=== PATIENT | female | born 1970 | race Caucasian/White ===

== ENCOUNTER 2020-10-24 12:19 | Outpatient (REF) | payer OTHER, SELFPAY ==
--- NOTE | ~2020-10-24 | XR_ITS ---
EXAMINATION: BILATERAL KNEE X-RAY CLINICAL INFORMATION: Pain COMPARISON: Previous chest x-ray May 2018 TECHNIQUE: 4 views of each knee FINDINGS: Right: Bone alignment is normal. No fracture or dislocation is seen. There are small osteophytes at the medial femoral tibial and patellofemoral joints. There is a small osteophyte at the quadriceps tendon insertion to the patella. There is a small joint effusion. Left: Bone alignment is normal. No fracture or dislocation is seen. There are osteophytes at the medial femoral tibial and patellofemoral joints. There is no joint effusion. XR/XR knee LT 4V IMPRESSION: Mild degenerative changes.
--- NOTE | ~2020-10-24 | XR_ITS ---
EXAMINATION: BILATERAL KNEE X-RAY CLINICAL INFORMATION: Pain COMPARISON: Previous chest x-ray May 2018 TECHNIQUE: 4 views of each knee FINDINGS: Right: Bone alignment is normal. No fracture or dislocation is seen. There are small osteophytes at the medial femoral tibial and patellofemoral joints. There is a small osteophyte at the quadriceps tendon insertion to the patella. There is a small joint effusion. Left: Bone alignment is normal. No fracture or dislocation is seen. There are osteophytes at the medial femoral tibial and patellofemoral joints. There is no joint effusion. XR/XR knee RT 3V IMPRESSION: Mild degenerative changes.
[2020-10-24 13:17] LABS: MANUAL DIFF FLAG NO
[2020-10-24 13:23] LABS: Basophils Percent Auto 0.4 % (0-2); Eosinophils Absolute Auto 0.2 X10*3/uL (0.0-0.4); Eosinophils Percent Auto 2.4 % (0-4); Hematocrit 34.5 % (37-47); Imm Gran Abs Auto 0.04 X10*3/uL (0.00-0.03); Imm Gran Pct Auto 0.5 % (0.0-0.4); Lymphocytes Absolute Auto 3.2 X10*3/uL (1.2-4.9); Lymphocytes Percent Auto 41.5 % (20-40); Mean Corpuscular HGB Conc 31.9 g/dl (31.0-35.0); Mean Corpuscular Hemoglobin 28.4 pg (27.0-33.0); Mean Corpuscular Volume 89.1 fL (80-98); Mean Platelet Volume 9.3 fL (9.4-12.3); Monocytes Absolute Auto 0.8 X10*3/uL (0.1-1.2); Monocytes Percent Auto 10.4 % (2-11); Neutrophils Absolute Auto 3.4 X10*3/uL (2.0-8.3); Neutrophils Percent Auto 44.8 % (45-73); Platelet Count 338 X10*3/uL (160-400); Red Blood Count 3.87 X10*6/uL (4.20-5.50); Red Cell Distribution Width 12.8 % (11.0-16.0); White Blood Count 7.6 X10*3/uL (4.8-10.8)
[2020-10-24 14:16] LABS: Alanine Aminotransferase 21 U/L (0-31); Alkaline Phosphatase 83 U/L (39-117); Anion Gap 11 (12-20); Aspartate Amino Transferase 20 U/L (5-31); Bilirubin Total 0.5 mg/dL (0.0-1.0); Blood Urea Nitrogen 10 mg/dL (9-16); Carbon Dioxide 30 mmol/L (22-29); Chloride 104 mmol/L (96-108); Estimated Glomerular Filt Rate > 60; Free T4 (Free Thyroxine) 0.91 ng/dL (0.71-1.85); Glucose Random 116 mg/dL (60-115); Iron 46 mcg/dL (30-160); Percent Iron Saturation 12 % (15-50); Potassium 4.6 mmol/L (3.3-5.1); Sodium 140 mmol/L (135-145); Thyroid Stimulating Hormone 2.24 uIU/mL (0.32-4.0); Total Iron Binding Capacity 379 mcg/dL (228-428); Total Protein 7.1 g/dL (6.5-8.0); Unsaturated Iron Binding 333 ug/dL
== END 2020-10-24 12:20 | disposition home or self-care (01) ==
LOC: HO.LAB 12:19
PROVIDERS: PCP Internal Medicine; Visit Provider Internal Medicine
DX: R63.5 Abnormal weight gain (principal); K21.9 Gastro-esophageal reflux disease without esophagitis; D64.9 Anemia, unspecified; M25.561 Pain in right knee
CPT/HCPCS: 36415; 73562; 73564; 80053; 83540; 84439; 84443; 85025; 86140

== ENCOUNTER → 2020-11-05 14:09 | Outpatient (BNVA) | payer OTHER, SELFPAY | PROVIDERS: PCP Internal Medicine; Visit Provider Orthopaedic Surgery | DX: M22.2X1 Patellofemoral disorders, right knee (principal); M22.2X2 Patellofemoral disorders, left knee | CPT/HCPCS: 20610; 99212; J1040 ==

== ENCOUNTER 2021-03-10 09:38 | Outpatient (REF) | payer OTHER, SELFPAY ==
--- NOTE | ~2021-03-10 | MM_ITS ---
EXAMINATION: MM SCREENING DIGITAL BREAST TOMOSYNTHESIS, BILATERAL CLINICAL INFORMATION: Screening. Asymptomatic. Benign breast biopsy 2007. No known family history breast cancer. The lifetime risk of breast cancer based on the Tyrer-Cuzick Model is 5%. COMPARISON: Mammography: 06/16/2019, 05/10/2018, 04/30/2017, 02/26/2016, 05/27/2015 TECHNIQUE: Digital breast tomosynthesis is performed in both the craniocaudal and mediolateral oblique views along with computer-aided detection (CAD). Synthesized 2D images are generated from the tomosynthesis. Additional right ML view is provided. FINDINGS: There are scattered areas of fibroglandular density (ACR BI-RADS breast composition Category b). The left breast is unremarkable. There is no developing density or interval mass or architectural abnormality. Neither breast shows abnormal calcifications. The bilateral axilla and skin contours are unremarkable. The right MLO view has asymmetric tissue anterior upper outer with increased parenchymal density which may related to variation in compression. Patient will be recalled for additional imaging. MM/MM tomosynthesis screening BI IMPRESSION: 1. Right: Parenchymal asymmetry upper right breast on MLO view is increased parenchymal attenuation, possibly related to variation in compression. 2. Left: No mammographic evidence of malignancy. ASSESSMENT: BI-RADS 0: Incomplete - Need Additional Imaging Evaluation RECOMMENDATION: 1. Additional views of the right breast (3D spot MLO; 3D spot ML). 2. Targeted ultrasound if warranted after review of the additional views. 3. Radiology department staff will contact the patient for additional imaging. This patient's information was entered into a reminder system with a target due date for their next mammogram.
== END 2021-03-10 09:39 | disposition home or self-care (01) ==
LOC: HO.MAMMO 09:38
PROVIDERS: Visit Provider Internal Medicine
DX: Z12.31 Encounter for screening mammogram for malignant neoplasm of breast (principal)
CPT/HCPCS: 77063; 77067

== ENCOUNTER 2021-06-04 15:09 | Outpatient (REF) | payer OTHER, SELFPAY ==
--- NOTE | ~2021-06-04 | MR_ITS ---
EXAMINATION: MR BRAIN WITHOUT CONTRAST CLINICAL INFORMATION: Vertigo. COMPARISON: MRI dated 02/27/2011. TECHNIQUE: Multiplanar, multisequence imaging of the brain was performed without contrast. FINDINGS: No diffusion abnormalities are identified to suggest an acute or subacute infarct. The ventricles are normal in size. No mass effect or midline shift is seen. No brain parenchymal signal abnormality is noted. No extra-axial fluid collections are seen. The brainstem and cerebellum are normal. The gradient refocused acquisition is normal. The craniovertebral junction, marrow signal, and midline structures are normal. The major intracranial flow voids at the level of the [place] are preserved. The dural venous sinus flow voids are maintained. The mastoid air cells are well aerated. Small proteinaceous retention cyst visible in the left sphenoid sinus. MR/MR head/brain wo con IMPRESSION: No acute process. Normal MRI of the brain.
== END 2021-06-04 15:10 | disposition home or self-care (01) ==
LOC: HO.MRI 15:09
PROVIDERS: PCP Internal Medicine; Visit Provider Psychiatry & Neurology Neurology
DX: R42 Dizziness and giddiness (principal)
CPT/HCPCS: 70551

== ENCOUNTER 2021-06-23 11:18 | Outpatient (REF) | payer OTHER, SELFPAY ==
--- NOTE | ~2021-06-23 | XR_ITS ---
EXAMINATION: XR SHOULDER, LEFT CLINICAL INFORMATION: Pain COMPARISON: None TECHNIQUE: AP external rotation, Grashey, scapular Y, and axillary views of the left shoulder. FINDINGS: Bone alignment is normal. No fracture or dislocation is seen. The glenohumeral joint is normal. There is mild arthritis at the acromioclavicular joint. There is a small soft tissue calcification adjacent to the acromion. XR/XR shoulder LT min 2V IMPRESSION: Mild arthritis at the acromioclavicular joint and small soft tissue calcification adjacent to the acromion.
== END 2021-06-23 11:19 | disposition home or self-care (01) ==
LOC: HO.XRAY 11:18
PROVIDERS: PCP Internal Medicine; Visit Provider Nurse Practitioner Family
DX: M79.7 Fibromyalgia (principal); M25.512 Pain in left shoulder; Z79.899 Other long term (current) drug therapy
CPT/HCPCS: 73030; 99212

== ENCOUNTER 2021-06-26 12:34 | Outpatient (REF) | payer OTHER, SELFPAY ==
--- NOTE | ~2021-06-26 | MM_ITS ---
EXAMINATION: MM DIAGNOSTIC DIGITAL BREAST TOMOSYNTHESIS, RIGHT US DIAGNOSTIC ULTRASOUND BREAST, RIGHT CLINICAL INFORMATION: Recall from screening for parenchymal asymmetry upper outer right breast with increased attenuation likely related to variation and compression. COMPARISON: Mammography: 03/10/2021, 06/16/2019, 05/10/2018, 04/30/2017, 02/26/2016, 01/25/2015 TECHNIQUE: Digital breast tomosynthesis is performed. 2D images are generated from the tomosynthesis. The following views are obtained: Spot MLO, spot ML Ultrasound right breast is targeted to the upper outer quadrant. Grayscale imaging and color Doppler are performed without and with harmonics. FINDINGS: There are scattered areas of fibroglandular density (ACR BI-RADS breast composition Category b). Parenchymal asymmetry upper outer right breast is similar to prior exams dating back to 2014. There is no developing density or architectural abnormality. Ultrasound right breast demonstrates normal-appearing fibroglandular tissue. There is an incidental 5 mm cyst in the upper outer quadrant. No solid mass or architectural abnormality or ductal ectasia. No skin thickening or edema tracking in soft tissue planes. Results are discussed with the patient at time of visit. MM/MM tomosynthesis added views R IMPRESSION: Parenchymal pattern similar to prior studies. Small cyst under 1 cm. ASSESSMENT: BI-RADS 2: Benign RECOMMENDATION: Routine annual mammography screening. This patient's information was entered into a reminder system with a target due date for their next mammogram.
== END 2021-06-26 12:35 | disposition home or self-care (01) ==
LOC: HO.MAMMO 12:34
PROVIDERS: PCP Internal Medicine; Visit Provider Internal Medicine
DX: N64.89 Other specified disorders of breast (principal)
CPT/HCPCS: 76642; 77061; 77065

== ENCOUNTER 2021-08-04 10:27 | Emergency (ER) | payer MEDICARE, MEDICAID, SELFPAY ==
--- NOTE | ~2021-08-04 | XR_ITS ---
EXAMINATION: XR CHEST CLINICAL INFORMATION: Cough COMPARISON: Chest radiograph from 10/31/2015 TECHNIQUE: Frontal view of the chest was obtained. FINDINGS: Bilateral low lung volumes. Slight accentuation the pulmonary vasculature. Mild bibasilar atelectasis. No pneumothorax. Cardiomediastinal silhouette is not enlarged. No large pleural effusion. Degenerative changes of the thoracolumbar spine. Soft tissues are unremarkable. XR/XR chest 1V IMPRESSION: 1. Bilateral low lung volumes. 2. Slight accentuation the pulmonary vasculature. 3. Mild bibasilar atelectasis.
[2021-08-04 10:29] VITALS: BP 125/70; PULSE 114; O2SAT 95
[2021-08-04 11:17] VITALS: BP 111/56; PULSE 114; RESP 19; TEMP 39.5; O2SAT 93; BMI 37.8
[2021-08-04] MEDS: Acetaminophen 325 MG TABLET 650 MG PO (11:34)
[2021-08-04 12:01] LABS: COVID-19 Test Positive (Negative); IDNOW Serial# 08D9AD1C
[2021-08-04 14:13] VITALS: TEMP 38.4
[2021-08-04] MEDS: Ibuprofen 600 MG TABLET PO (14:13)
[2021-08-04 14:19] VITALS: BP 124/58; PULSE 95; RESP 18; TEMP 38.4; O2SAT 97
--- NOTE | 2021-08-04 14:23 | ED.URI ---
HPI - URI/Sore Throat General Chief Complaint: Upper Respiratory Symptoms Stated Complaint: FEVER,BODYACHES,CANNON,? COVID, +VACC Time Seen by Provider: 08/04/21 12:13 Source: patient Mode of arrival: ambulatory Limitations: no limitations History of Present Illness HPI Narrative: 51-year-old female with a history of obesity, fibromyalgia here with reports of cough, fever, runny nose, headache, body aches since . No shortness of breath, chest pain, vomiting, diarrhea, abdominal pain, joint pain or rash. Patient received COVID vaccine x2 Related Data Home Medications Medication Instructions Recorded Confirmed amitriptyline 75 mg tablet 75 mg PO BEDTIME 11/05/20 06/23/21 clonazepam 1 mg tablet 1 mg PO BID 11/05/20 06/23/21 cyclobenzaprine 10 mg tablet 10 mg PO BEDTIME PRN 11/05/20 06/23/21 meclizine 25 mg tablet 25 mg PO TID 11/05/20 06/23/21 omeprazole 20 mg capsule,delayed 20 mg PO DAILY 11/05/20 06/23/21 release simvastatin 10 mg tablet 10 mg PO DAILY 11/05/20 06/23/21 Previous Rx's Medication Instructions Recorded cholecalciferol (vitamin D3) 25 25 mcg PO DAILY #30 cap 02/04/21 mcg (1,000 unit) capsule (Vitamin D3) gabapentin 400 mg capsule 400 mg PO TID #270 cap 07/17/21 Allergies Allergy/AdvReac Type Severity Reaction Status Date / Time No Known Allergies Allergy Mild NONE Verified 08/04/21 11:17 Review of Systems Review of Systems: Yes all other systems are reviewed and are negative Constitutional: Constitutional: Reports no additional constitutional complaints, Reports body ache(s), Reports chills, Reports fever(s), Reports headache(s) and Denies weakness Eyes: Eyes: Reports no additional eye complaints and Denies change in vision ENT: Reports system reviewed and no additional complaints, except as documented, Denies dizziness, Reports headache(s), Denies nasal congestion, Reports nasal discharge and Denies neck pain Cardiovascular: Cardiovascular: Reports no additional cardiovascular complaints, Denies chest pain, Denies leg edema and Denies dyspnea Respiratory: Respiratory: Reports no additional respiratory complaints, Reports cough and Denies dyspnea Gastrointestinal: Gastrointestinal: Reports no additional gastrointestinal complaints, Denies abdominal pain, Denies diarrhea, Denies nausea and Denies vomiting Genitourinary: Genitourinary: Reports no additional female genitourinary complaints and Denies urinary incontinence Musculoskeletal: Musculoskeletal: Reports no additional musculoskeletal complaints, Denies back pain, Denies arthralgias, Denies joint swelling, Denies neck pain, Denies numbness and Denies tingling Integumentary/Breasts: Skin/Breast: Reports system reviewed and no additional complaints, except as docu and Denies rash Neurologic: Reports system reviewed and no additional complaints, except as documented, Denies Abnormal speech present, Denies dizziness, Reports headache(s), Denies numbness, Denies tingling and Denies weakness PMF Past Medical History Attestation statement: The following information was validated with the patient. Source: old records reviewed and nursing notes reviewed Medical History Acid reflux Anxiety High cholesterol Vertigo Surgical History History of section History of tubal ligation Family History Family History Mother No problems noted. Father No problems noted. Social History Social History Alcohol intake: current Patient Tobacco Use Status: Never used Tobacco Advance Directives: No Advance Directives Information Provided: Yes Patient : No Current occupational status: unemployed Physical Exam Vital Signs: Vital Signs: Last Vital Signs Temp 101.2 F H 08/04/21 14:19 Pulse 95 08/04/21 14:19 Resp 18 08/04/21 14:19 BP 124/58 L 08/04/21 14:19 Pulse Ox 97 08/04/21 14:19 BMI result Body Mass Index 37.8 Const: General: cooperative, healthy appearing, comfortable and no acute distress Orientation/consciousness: patient oriented x3 Limitations: no limitations HENMT: Head: Yes normal to inspection Ears: hearing grossly normal bilaterally and TM's normal bilaterally General nose exam: Normal external nose present Face and sinus: Yes normal facial exam Mouth: Normal oral and palatal mucosa present Throat: Yes posterior oropharynx normal Eyes: General: appearance normal, both eyes and all related structures Pupils: Equal, round and reactive pupils present Neck: Neck: Yes normal visual inspection, Yes full ROM, Yes no lymphadenopathy and Yes no meningeal signs Chest: Chest palpation & inspection: normal inspection of the chest Resp: Effort & Inspection: normal respiratory effort Auscultation: clear to auscultation bilaterally Cardio: Rate: regular rate Rhythm: regular rhythm Peripheral pulses: Peripheral pulses 2+ throughout GI: Inspection: Yes normal to inspection Palpation (GI): Soft to palpation and nontender Auscultation: normal bowel sounds Back/Spine/Pelvis: Thoracic/Lumbar Spine: thoracic and lumbar spine normal to inspection Skin: General skin exam: no rashes or lesions noted Neuro: General: patient oriented x3, no meningeal signs, no focal motor deficits and normal sensation to monofilament Cranial nerves: Yes Equal, round and reactive pupils present Cognition (Neuro): normal cognition Speech: No Abnormal speech present Gait exam (Neuro): Normal gait present Motor exam (neuro): 5/5 motor strength present throughout Extrem: General: Yes normal to inspection, Yes no pedal edema and Yes no calf tenderness Course Course Course Narrative: 51-year-old female with a history of fibromyalgia and obesity here with reports of flu-like symptoms for several days. On arrival the patient is febrile with tachycardia which is from the fever. No hypoxia or tachypnea. After receiving Tylenol the patient's heart rate and temperature improved. Rapid COVID positive. Lungs are clear. Otherwise exam is benign.. We discussed monoclonal antibodies.. Referral was made the patient was given a copy of the referral. Reviewed worrisome signs and symptoms to return to the emergency department. Comfortable discharge home. MDM - URI/Sore Throat Medical Records Attestation: I reviewed the patient's medical records. Lab Data Attestation: I reviewed the patient's lab results. Labs: Lab Results 08/04/21 Range/Units 11:42 COVID-19 (EMILY) Positive A (Negative) COVID-19 Clin Com See Note Discharge Plan Discharge Clinical Impression: COVID-19 Patient Disposition: Home, Self-Care Instructions: COVID-19 (Coronavirus Disease 2019) (ED) Additional Instructions: Quarantine for 10 days from onset of symptoms Alternate Motrin or Tylenol for pain or fever Increase fluids, rest Notify any contacts that you had since having symptoms You were referred for monoclonal antibodies. You were given a copy of the referral Prescriptions: No Action cholecalciferol (vitamin D3) [Vitamin D3] 25 mcg (1,000 unit) capsule 25 mcg PO DAILY Qty: 30 RF: 5 gabapentin 400 mg capsule 400 mg PO TID Qty: 270 RF: 1 amitriptyline 75 mg tablet 75 mg PO BEDTIME RF: 0 omeprazole 20 mg capsule,delayed release(DR/EC) 20 mg PO DAILY RF: 0 meclizine 25 mg tablet 25 mg PO TID RF: 0 clonazepam 1 mg tablet 1 mg PO BID RF: 0 simvastatin 10 mg tablet 10 mg PO DAILY RF: 0 cyclobenzaprine 10 mg tablet 10 mg PO BEDTIME PRNRF: 0 Referrals: Physician,Unknown J [Primary Care Provider] - 2 days Interventions: ED Discharge Assessment Last Done: 08/04/21 14:30 Discharge Date/Time: 08/04/21 14:30
== END 2021-08-04 14:30 | disposition home or self-care (01) ==
PROVIDERS: Emergency Provider Emergency Medicine
DX: U07.1 COVID-19 (principal)
CPT/HCPCS: 36415; 71045; 87635; 99283

== ENCOUNTER 2021-08-19 10:30 | Outpatient (REF) | payer MEDICARE, MEDICAID, SELFPAY ==
[2021-08-19 11:02] LABS: COVID-19 Test Negative (Negative); IDNOW Serial# 55D5AD1C
== END 2021-08-19 10:31 | disposition home or self-care (01) ==
LOC: HO.LNP 10:30
PROVIDERS: Visit Provider Internal Medicine
DX: Z20.822 Contact with and (suspected) exposure to COVID-19 (principal); R51.9 Headache, unspecified; R05.9 Cough, unspecified
CPT/HCPCS: 87635

== ENCOUNTER 2022-02-05 10:21 | Outpatient (REF) | payer MEDICARE, MEDICAID, SELFPAY ==
[2022-02-05 11:38] LABS: Alanine Aminotransferase 20 U/L (0-31); Albumin Level 3.9 g/dL (3.5-5.0); Alkaline Phosphatase 82 U/L (39-117); Anion Gap 10 (12-20); Aspartate Amino Transferase 20 U/L (5-31); Bilirubin Total 0.2 mg/dL (0.0-1.0); Blood Urea Nitrogen 10 mg/dL (9-16); Calcium 9.2 mg/dL (8.4-10.2); Carbon Dioxide 27 mmol/L (22-29); Chloride 103 mmol/L (96-108); Estimated Glomerular Filt Rate > 60; Glucose Random 122 mg/dL (60-115); Potassium 4.2 mmol/L (3.3-5.1); Sodium 136 mmol/L (135-145); Total Protein 7.1 g/dL (6.5-8.0)
== END 2022-02-05 10:22 | disposition home or self-care (01) ==
LOC: HO.LAB 10:21
PROVIDERS: PCP Internal Medicine; Visit Provider Nurse Practitioner Family
DX: M79.7 Fibromyalgia (principal)
CPT/HCPCS: 36415; 80053

== ENCOUNTER 2022-03-26 10:36 | Outpatient (REF) | payer MEDICARE, MEDICAID, SELFPAY | END 2022-03-26 10:37 | disposition home or self-care (01) | LOC: HO.LAB 10:36 | PROVIDERS: PCP Internal Medicine; Visit Provider Nurse Practitioner Family | DX: E55.9 Vitamin D deficiency, unspecified (principal) | CPT/HCPCS: 36415; 82306 ==

== ENCOUNTER → 2022-06-23 11:24 | Outpatient (BNVA) | payer MEDICARE, MEDICAID, SELFPAY | PROVIDERS: PCP Internal Medicine; Referring Provider Internal Medicine; Visit Provider Nurse Practitioner Family | DX: M79.7 Fibromyalgia (principal) | CPT/HCPCS: 99212 ==

== ENCOUNTER 2022-07-20 12:09 | Outpatient (REF) | payer MEDICARE, MEDICAID, SELFPAY ==
--- NOTE | ~2022-07-20 | XR_ITS ---
EXAMINATION: XR ELBOW, RIGHT CLINICAL INFORMATION: Pain. COMPARISON: None TECHNIQUE: AP, lateral, and oblique views of the right elbow. FINDINGS: The tricompartment joint space is maintained normal. No visible fracture, loose bodies or bony erosive changes. There is a small enthesophyte along the superior olecranon process. XR/XR elbow RT 2V IMPRESSION: Mild degenerative spurring along the superior olecranon process. Otherwise unremarkable elbow exam.
== END 2022-07-20 12:10 | disposition home or self-care (01) ==
LOC: HO.XRAY 12:09
PROVIDERS: PCP Internal Medicine; Visit Provider Nurse Practitioner Family
DX: M25.521 Pain in right elbow (principal)
CPT/HCPCS: 73070

== ENCOUNTER 2022-07-28 12:10 | Outpatient (REF) | payer MEDICARE, MEDICAID, SELFPAY ==
--- NOTE | ~2022-07-28 | XR_ITS ---
EXAMINATION: XR FOOT, LEFT CLINICAL INFORMATION: Left foot pain COMPARISON: 03/16/2013 TECHNIQUE: AP, lateral, and oblique views of the left foot. FINDINGS: No acute fracture or malalignment. Moderate heel spur. Mild 1st MTP joint osteoarthritis. XR/XR foot LT min 3V IMPRESSION: Moderate heel spur. Mild 1st MTP joint osteoarthritis.
== END 2022-07-28 12:11 | disposition home or self-care (01) ==
LOC: HO.LAB 12:10
PROVIDERS: PCP Internal Medicine; Visit Provider Nurse Practitioner Family
DX: M79.7 Fibromyalgia (principal); M79.672 Pain in left foot
CPT/HCPCS: 36415; 73630; 82306

== ENCOUNTER 2022-08-13 14:15 | Outpatient (REF) | payer MEDICARE, MEDICAID, SELFPAY ==
[2022-08-13 14:29] LABS: MANUAL DIFF FLAG NO
[2022-08-13 14:40] LABS: Basophils Percent Auto 0.4 % (0-2); Eosinophils Absolute Auto 0.2 X10*3/uL (0.0-0.4); Eosinophils Percent Auto 2.6 % (0-4); Hematocrit 36.2 % (37.0-47.0); Hemoglobin 11.8 g/dl (12.0-16.0); Imm Gran Abs Auto 0.03 X10*3/uL (0.00-0.03); Imm Gran Pct Auto 0.4 % (0.0-0.4); Lymphocytes Absolute Auto 3.2 X10*3/uL (1.2-4.9); Mean Corpuscular HGB Conc 32.6 g/dl (31.0-35.0); Mean Corpuscular Hemoglobin 29.2 pg (27.0-33.0); Mean Corpuscular Volume 89.6 fL (80.0-98.0); Mean Platelet Volume 9.1 fL (9.4-12.3); Monocytes Absolute Auto 0.9 X10*3/uL (0.1-1.2); Neutrophils Absolute Auto 3.7 x10*3/uL (2.0-8.3); Neutrophils Percent Auto 45.6 % (45-73); Platelet Count 353 X10*3/uL (160-400); Red Blood Count 4.04 X10*6/uL (4.20-5.50); Red Cell Distribution Width 12.3 % (11.0-16.0); White Blood Count 8.1 X10*3/uL (4.8-10.8)
[2022-08-13 15:03] LABS: IDNOW Serial# 08D9AD1C; Strep A Nucleic Acid Invalid (Negative)
[2022-08-13 15:06] LABS: Alanine Aminotransferase 18 U/L (0-31); Alkaline Phosphatase 87 U/L (39-117); Anion Gap 12 (12-20); Aspartate Amino Transferase 21 U/L (5-31); Bilirubin Total 0.3 mg/dL (0.0-1.0); Blood Urea Nitrogen 11 mg/dL (9-16); Calcium 9.5 mg/dL (8.4-10.2); Carbon Dioxide 30 mmol/L (22-29); Chloride 104 mmol/L (96-108); Estimated Glomerular Filt Rate > 60; Glucose Random 106 mg/dL (60-115); Potassium 4.5 mmol/L (3.3-5.1); Sodium 141 mmol/L (135-145); Total Protein 7.4 g/dL (6.5-8.0)
== END 2022-08-13 14:16 | disposition home or self-care (01) ==
LOC: HO.LAB 14:15
PROVIDERS: PCP Internal Medicine; Visit Provider Internal Medicine
DX: J02.9 Acute pharyngitis, unspecified (principal); R53.83 Other fatigue
CPT/HCPCS: 36415; 80053; 85025; 87651

== ENCOUNTER 2023-03-23 09:38 | Outpatient (REF) | payer MEDICARE, MEDICAID, SELFPAY ==
--- NOTE | ~2023-03-23 | XR_ITS ---
EXAMINATION: XR HIP, RIGHT CLINICAL INFORMATION: Pain after remote fall COMPARISON: None available. TECHNIQUE: Two views of the right hip. FINDINGS: Visualized portion of the proximal right femur demonstrate no fracture. Right femoral head is well-seated within the acetabulum. There is mild narrowing of the femoral acetabular joint space. Small osteophyte along the superolateral acetabular margin. Small enthesophytes off the greater trochanter of the right hip. The pelvic ring is intact. The left hip is grossly unremarkable. XR/XR hip RT w [id number] IMPRESSION: Mild degenerative changes of the right hip without fracture or dislocation.
== END 2023-03-23 09:39 | disposition home or self-care (01) ==
LOC: HO.XRAY 09:38
PROVIDERS: PCP Internal Medicine; Visit Provider Internal Medicine Rheumatology
DX: M25.551 Pain in right hip (principal); M17.0 Bilateral primary osteoarthritis of knee; M79.7 Fibromyalgia
CPT/HCPCS: 73502; 99212

== ENCOUNTER 2023-03-23 09:38 | Outpatient (AMB) | payer MEDICARE, MEDICAID, SELFPAY ==
--- NOTE | 2023-03-23 10:11 | MHC.OFFVIS ---
Intake Vital Signs 03/23/23 10:12 Height 5 ft 1 in Weight 198 lb 3.129 oz BMI 37.4 BP 102/68 Blood Pressure Location Lt brachial Position Sitting Pulse 84 Pulse Source Pulse Oximeter Temp 97 F Temp Source Skin Pulse Oximetry (%) 96 Oxygen Delivery Method Room Air Intake Visit Reasons: FM Intake Note: Here for fibromyalgia follow up. 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 She has a low titer rheumatoid factor. She continues with widespread pain in spite of treatment with gabapentin 400 t.i.d., Flexeril 10 q.h.s. Elavil 75 q.h.s. and duloxetine. She complains of more hip pain recently in the right lateral hip. She had a fall on the hip about 6 weeks ago. There was no bruising or breaks in the skin. She is slightly better since then. [facility] Medical History Acid reflux Anxiety High cholesterol Vertigo Surgical History History of section History of tubal ligation Family History Mother No problems noted. Father No problems noted. Social History Alcohol intake: current Patient Tobacco Use Status: Never used Tobacco Current occupational status: unemployed Review of Systems Const Details: Negative for appetite change, weight change, fever, chills, malaise and fatigue Eyes Details: Negative for vision change, dry eyes,headaches and dizziness ENT Details: Negative for hearing change, tinnitus, oral ulcer, nose bleeds and oral dryness. Card Details: Negative chest pain, edema and syncope Resp Details: Negative for SOB, cough and wheezing GI Details: Negative indigestion/heartburn, nausea, abdominal pain, bowel changes, diarrhea, constipation and bloody stool. Psych Details: Negative for anxiety, depression and stress Mihir/Lymph Details: Negative for excessive bruising or bleeding. Physical Exam Vital Signs: Last Vital Signs Temp 97 F 03/23/23 10:12 Pulse 84 03/23/23 10:12 BP 102/68 03/23/23 10:12 Pulse Ox 96 03/23/23 10:12 Oxygen Delivery Method Room Air 03/23/23 10:12 BMI result Body Mass Index 37.4 APPEARANCE: Patient in no acute distress EYES no redness, pupils equal and reactive to light, eyelids normal EXTREMITIES: No edema, no calf tenderness, normal peripheral pulses. JOINT EXAM: Cervical Spine:? Full range of motion without pain; no tenderness. Thoracic Spine:? No scoliosis.? No tenderness on palpation. Lumbar Spine: Alignment normal.? Full range of motion without pain, no tenderness. Hands: Normal pain-free range of motion with slight tenderness across the MCPs but no swelling is appreciated. There is some mild bony enlargement at the 2nd through 5th PIP joints. No thenar atrophy, sensory loss or flexor tendon triggering. Wrists:? Normal pain-free range of motion with slight tenderness but no tenderness, swelling, increased warmth or erythema. Elbows: LEFT: Normal pain-free range of motion without tenderness, swelling, increased warmth or erythema. ? RIGHT:? Some pain with flexion.? No swelling increased warmth or erythema.? Point tenderness over lateral epicondyle.?? Shoulders:?? Full range of motion without pain. No tenderness, weakness, swelling, increased warmth or erythema. Hips: Right: mild lateral pain with the extremes of rotatin. Left: Full range of motion without pain. Hip bursa: mild right trochanteric tenderness. Knees: Normal pain-free range of motion with mild patellofemoral crepitus. There is some medial patellar tenderness without effusion, soft tissue swelling, increased warmth or erythema.? Ankles: Normal pain-free range of motion without tenderness, swelling, increased warmth or erythema. Feet:? LEFT: Normal pain-free range of motion. There is mild bony enlargement and tenderness at the 1st MTP. Other joints are not tender. Elsewhere there is no erythema, swelling, warmth noted and the remainder of the toes are pain-free. ? RIGHT:? Slight 1st MTP bony enlargement without tenderness. Otherwise there is normal pain-free range of motion without tenderness, swelling, increased warmth or erythema. Tender points:? Mild tenderness to digital palpation at the occiput, trapezius, second rib, lateral epicondyle, knees, greater trochanter and gluteal area bilaterally. ?? Results Reviewed Results Reviewed: [address] [address] XRay Report Signed Patient: Rosmery Bazan MR#: [id number] : 1970 Acct:[id number] Age/Sex: 50 / F ADM Date: 10/24/[address]: Ricardo Hernandez MD Ordering Physician: LUDMILA HERNANDEZ MD Date of Service: 10/24/20 Procedure(s): XR knee RT 3V Accession Number(s): [id number] cc: LUDMILA HERNANDEZ MD~ EXAMINATION: BILATERAL KNEE X-RAY CLINICAL INFORMATION: Pain? COMPARISON: Previous chest x-ray May 2018 TECHNIQUE: 4 views of each knee? ? FINDINGS: Right: Bone alignment is normal. No fracture or dislocation is seen. There are small osteophytes at the medial femoral tibial and patellofemoral joints. There is a small osteophyte at the quadriceps tendon insertion to the patella. There is a small joint effusion. Left: Bone alignment is normal. No fracture or dislocation is seen. There are osteophytes at the medial femoral tibial and patellofemoral joints. There is no joint effusion. XR/XR knee RT 3V IMPRESSION: Mild degenerative changes.? Dictated By: AKIN TERRY MD Assessment & Plan Assessment & Plan (1) Hip pain, right: Code(s): M25.551 - Pain in right hip (2) Osteoarthritis of knees, bilateral: Comment: Mostly patellofemoral Code(s): M17.0 - Bilateral primary osteoarthritis of knee (3) Fibromyalgia: Code(s): M79.7 - Fibromyalgia Plan The widespread pains of fibromyalgia continue. She has some patellofemoral OA that continues to bother her. Efforts at weight loss and quadriceps exercises are recommended. For now I think she could stay on her same medications as they do not seem to be sedating. The right hip pain is out of proportion to her usual pain so we will check an x-ray there. Most likely this is some traumatic bursitis in the hip. We could consider physical therapy or corticosteroid injection in the future. Otherwise a follow-up in 6 months would be reasonable. Coding Level of Care Code Est Pt Level 3 (07707) Diagnoses Hip pain, right M25.551 Osteoarthritis of knees, bilateral M17.0 Fibromyalgia M79.7
[2023-03-23 10:12] VITALS: BP 102/68; PULSE 84; TEMP 36.1; O2SAT 96; BMI 37.4
== END 2023-03-23 11:08 | disposition home or self-care (01) ==
PROVIDERS: PCP Internal Medicine; Visit Provider Internal Medicine Rheumatology
DX: M25.551 Pain in right hip (principal); M17.0 Bilateral primary osteoarthritis of knee; M79.7 Fibromyalgia
CPT/HCPCS: 99213

== ENCOUNTER 2023-04-20 11:08 | Outpatient (REF) | payer MEDICARE, MEDICAID, SELFPAY ==
[2023-04-20 11:28] LABS: MANUAL DIFF FLAG NO
[2023-04-20 11:58] LABS: Basophils Percent Auto 0.5 % (0-2); Eosinophils Absolute Auto 0.2 X10*3/uL (0.0-0.4); Eosinophils Percent Auto 2.4 % (0-4); Hematocrit 32.1 % (37.0-47.0); Hemoglobin 10.5 g/dl (12.0-16.0); Imm Gran Abs Auto 0.04 X10*3/uL (0.00-0.03); Imm Gran Pct Auto 0.5 % (0.0-0.4); Lymphocytes Absolute Auto 3.5 X10*3/uL (1.2-4.9); Lymphocytes Percent Auto 39.8 % (20-40); Mean Corpuscular HGB Conc 32.7 g/dl (31.0-35.0); Mean Corpuscular Hemoglobin 29.2 pg (27.0-33.0); Mean Corpuscular Volume 89.2 fL (80.0-98.0); Mean Platelet Volume 9.6 fL (9.4-12.3); Monocytes Absolute Auto 0.9 X10*3/uL (0.1-1.2); Monocytes Percent Auto 10.8 % (2-11); Platelet Count 338 X10*3/uL (160-400); Red Cell Distribution Width 12.4 % (11.0-16.0); White Blood Count 8.7 X10*3/uL (4.8-10.8)
[2023-04-20 12:53] LABS: Erythrocyte Sedimentation Rate 31 MM/HR (0-20)
[2023-04-20 12:57] LABS: Anion Gap 10 (12-20); Blood Urea Nitrogen 10 mg/dL (9-16); C Reactive Protein 1.44 mg/dL (< or = 0.50); Calcium 8.9 mg/dL (8.4-10.2); Carbon Dioxide 28 mmol/L (22-29); Chloride 104 mmol/L (96-108); Cholesterol 149 mg/dL (<200); Estimated Glomerular Filt Rate > 60; Glucose Random 108 mg/dL (60-115); Potassium 3.3 mmol/L (3.3-5.1); Sodium 139 mmol/L (135-145)
[2023-04-20 13:12] LABS: Free T4 (Free Thyroxine) 1.01 ng/dL (0.71-1.85); Thyroid Stimulating Hormone 3.55 uIU/mL (0.32-4.0)
[2023-04-20 13:19] LABS: Vitamin B12 420 pg/mL (200-900)
== END 2023-04-20 11:09 | disposition home or self-care (01) ==
LOC: HO.LAB 11:08
PROVIDERS: PCP Internal Medicine; Visit Provider Internal Medicine
DX: R53.83 Other fatigue (principal); M79.7 Fibromyalgia; E78.00 Pure hypercholesterolemia, unspecified; K21.9 Gastro-esophageal reflux disease without esophagitis
CPT/HCPCS: 36415; 80048; 82465; 82607; 84439; 84443; 85025; 85652; 86140

== ENCOUNTER 2023-04-24 19:30 | Emergency (ER) | payer MEDICARE, MEDICAID, SELFPAY ==
--- NOTE | ~2023-04-24 | XR_ITS ---
EXAMINATION: CHEST 2 VIEWS CLINICAL INFORMATION: chest pain. COMPARISON: 08/04/2021. TECHNIQUE: PA and lateral views of the chest obtained. FINDINGS: The lungs are mildly hypoexpanded but similar to the prior study. No focal infiltrate, effusion, edema, or pneumothorax. Cardiac and mediastinal silhouettes are within normal limits for technique. No acute bony abnormality seen XR/XR chest 2V IMPRESSION: Mildly hypoexpanded but otherwise no evidence of acute disease.
[2023-04-24 20:56] VITALS: BP 130/61; PULSE 72; RESP 18; TEMP 36.7; O2SAT 100; BMI 34.0
--- NOTE | 2023-04-24 20:56 | ED.GENADULT ---
HPI - General Adult General Chief complaint: General Medical Stated complaint: body aches ,fever,diarrhea x2 wks Time Seen by Provider: 04/24/23 23:40 Source: patient Mode of arrival: ambulatory Limitations: no limitations History of Present Illness HPI narrative: Patient is a 53-year-old female with history of fibromyalgia, osteoarthritis of knees presenting to the emergency department with complaint of intermittent subjective fevers which she describes as sweats/chills, generalized body aches, intermittent headaches, intermittent episodes of diarrhea and intermittent chest pain for the past 2 weeks. She denies cough. Denies abdominal pain. Denies nausea, vomiting, constipation. Denies any sick contacts. States that when she has diarrhea it is approximately 3 episodes per day. Denies recent antibiotics. Denies any rashes. MD complaint: Body aches, chest pain Onset (ago): week(s) Severity: moderate Quality: aching Pain Consistency: intermittent Relieving factors: none Exacerbating factors: none Associated symptoms: chest pain, fever/chills and headaches Treatments prior to arrival: none Related Data Home Medications Medication Instructions Recorded Confirmed amitriptyline 75 mg tablet 75 mg PO BEDTIME 11/05/20 03/23/23 clonazepam 1 mg tablet 1 mg PO BID 11/05/20 03/23/23 meclizine 25 mg tablet 25 mg PO TID 11/05/20 03/23/23 omeprazole 20 mg capsule,delayed 20 mg PO DAILY 11/05/20 03/23/23 release simvastatin 10 mg tablet 10 mg PO DAILY 11/05/20 03/23/23 duloxetine 60 mg capsule,delayed 60 mg PO DAILY 03/23/23 03/23/23 release Previous Rx's Medication Instructions Recorded naproxen 500 mg tablet 500 mg PO BID #28 tabs 06/23/22 cyclobenzaprine 10 mg tablet 10 mg PO BEDTIME PRN muscle spasm 09/24/22 #30 tabs gabapentin 400 mg capsule 400 mg PO TID #90 caps 04/13/23 cholecalciferol (vitamin D3) 50 50 mcg PO DAILY #30 caps 04/19/23 mcg (2,000 unit) capsule (Vitamin D3) Allergies Allergy/AdvReac Type Severity Reaction Status Date / Time No Known Allergies Allergy Mild NONE Verified 03/23/23 10:12 Review of Systems Review of Systems: As per HPI. Yes all other systems are reviewed and are negative Constitutional: Constitutional: Reports as per HPI [facility] Past Medical History Medical History Acid reflux Anxiety High cholesterol Vertigo Surgical History History of section History of tubal ligation Family History Family History Mother No problems noted. Father No problems noted. Social History Social History Alcohol intake: never Patient Tobacco Use Status: Never used Tobacco Smoked in Last 30 Days: No Use of substances other than those prescribed or required for medical reasons: No Advance Directives: No Advance Directives Information Provided: Yes Current occupational status: unemployed Physical Exam ED Vital Signs: Vital Signs - 24 hr 04/24/23 20:56 04/24/23 23:57 04/25/23 01:58 Temperature 98.1 F 98.2 F 98.2 F Pulse Rate 72 62 62 Respiratory Rate 18 16 16 Blood Pressure 130/61 127/79 131/84 Pulse Oximetry 100 98 98 Oxygen Delivery Method Room Air Room Air Room Air 04/25/23 03:08 Temperature Pulse Rate 70 Respiratory Rate 16 Blood Pressure 128/74 Pulse Oximetry 98 Oxygen Delivery Method Room Air BMI result Body Mass Index 34.0 Vital signs have been reviewed and appear to be correct. Blood pressure normal. Heart rate normal. Respiratory rate normal. Temperature normal. Oxygen saturation normal. Const General: cooperative, healthy appearing and no acute distress Orientation/consciousness: oriented to person, oriented to place, oriented to time and patient oriented x3 Limitations: no limitations [facility] Head: Yes normocephalic and Yes atraumatic Ears: external ears normal General nose exam: Normal external nose present Face and sinus: Yes face symmetric Mouth: oropharynx normal and moist mucous membranes Throat: Yes uvula midline Eyes Pupils: Equal, round and reactive pupils present Neck Neck: Yes normal visual inspection and Yes supple Resp Effort & Inspection: normal respiratory effort and able to speak in complete sentences Auscultation: clear to auscultation bilaterally Cardio Rate: regular rate Rhythm: regular rhythm Heart sounds: S1 normal heart sound present and S2 normal heart sound present GI Inspection: Yes normal to inspection Palpation (GI): Soft to palpation, nontender, no guarding and No Rebound tenderness present Auscultation: normoactive bowel sounds General: Yes no CVA tenderness Back/Spine/Pelvis Back: no CVA tenderness Skin General skin exam: elasticity normal and turgor normal Neuro General: oriented to person, oriented to place, oriented to time, patient oriented x3, moves all extremities, no focal motor deficits and CN's II-XI intact bilaterally Cranial nerves: Yes Equal, round and reactive pupils present Cognition (Neuro): normal cognition Extrem General: Yes full ROM, Yes no pedal edema and Yes no calf tenderness Psych Mental Status: mental status grossly normal Affect: normal affect Thought process: Normal thought process present Course Course Course Narrative: This is an RME: Additional HPI, ROS, PE not included below will be deferred to primary provider. This is a 75-ccpb-jna-female, with hx of fibromyalgia, HLD, vertigo, presenting to the emergency department with complaints of chest pain, subjective fevers, diarrhea, body aches x 2 weeks. No nausea or vomiting. No abdominal pain. Plan: Labs, viral swabs, UA ordered Medical Decision Making Medical Decision Making MDM Narrative: Patient is a 53-year-old female with history of fibromyalgia, osteoarthritis of knees presenting to the emergency department with complaint of intermittent subjective fevers which she describes as sweats/chills, generalized body aches, intermittent headaches, intermittent episodes of diarrhea and intermittent chest pain for the past 2 weeks. On exam patient is awake, A+Ox3, VS WNL, afebrile, normal neurological exam without focal deficits, TMs normal bilaterally, no erythema, edema, or exudate to posterior oropharynx, lung sounds clear throughout, abdomen soft and nontender, no CVA tenderness. Given reported symptoms and physical exam findings, initial differential includes viral illness, UTI, pneumonia, strep pharyngitis, electrolyte abnormality. Labs notable for no leukocytosis, mild anemia consistent with baseline, negative troponin, no electrolyte abnormalities. No evidence of acute disease on chest x-ray. Flu, RSV, and Covid negative. EKG normal sinus rhythm. Heart score 1. No evidence of infection on UA. Feel symptoms likely related to viral illness. All results discussed with patient and all questions answered. Instructed patient to utilize Tylenol and ibuprofen as needed for symptoms, ensure adequate rest an adequate fluid intake. Instructed patient to follow-up with primary care provider this week. Return precautions discussed at bedside. Patient verbalized understanding of and agreement with plan. Differential Diagnosis Differential Diagnoses: The differential diagnosis associated with the presentation includes As per MDM. Lab Data [facility] Lab Attestation statement: I reviewed the patient's lab results. As per MDM. 04/24/23 21:21 04/24/23 21:21 Labs: Lab Results 04/24/23 04/24/23 04/25/23 Range/Units 21:18 21:21 01:13 WBC 7.9 (4.8-10.8) X10*3/uL RBC 3.98 L (4.20-5.50) X10*6/uL Hgb 11.6 L (12.0-16.0) g/dl Hct 35.1 L (37.0-47.0) % MCV 88.2 (80.0-98.0) fL MCH 29.1 (27.0-33.0) pg MCHC 33.0 (31.0-35.0) g/dl RDW 12.4 (11.0-16.0) % Plt Count 334 (160-400) X10*3/uL MPV 8.9 L (9.4-12.3) fL Immature Gran % (Auto) 0.4 (0.0-0.4) % Neut % (Auto) 34.6 L (45-73) % Lymph % (Auto) 51.8 H (20-40) % [place] % (Auto) 10.5 (2-11) % Eos % (Auto) 2.2 (0-4) % Baso % (Auto) 0.5 (0-2) % Lymph # (Auto) 4.1 (1.2-4.9) X10*3/uL [place] # (Auto) 0.8 (0.1-1.2) X10*3/uL Eos # (Auto) 0.2 (0.0-0.4) X10*3/uL Baso # (Auto) 0.0 (0.0-0.2) X10*3/uL Abs Immat Gran (auto) 0.03 (0.00-0.03) X10*3/uL Absolute Neuts (auto) 2.7 (2.0-8.3) x10*3/uL Absolute Nucleated RBC 0.000 (0.0-0.012) X10*3/uL Nucleated RBC % (auto) 0.0 (0.0-0.2) /100WBC Sodium 142 (135-145) mmol/L Potassium 4.1 D (3.3-5.1) mmol/L Chloride 105 (96-108) mmol/L Carbon Dioxide 29 (22-29) mmol/L Anion Gap 12 (12-20) BUN 7 L (9-16) mg/dL Creatinine 0.72 (0.5-1.4) mg/dL Estim Creat Clear Calc 86.4 Estimated GFR > 60 Random Glucose 91 (60-115) mg/dL Calcium 9.5 D (8.4-10.2) mg/dL Magnesium 2.3 (1.6-2.6) mg/dL Total Bilirubin 0.2 (0.0-1.0) mg/dL Direct Bilirubin < 0.2 (0.0-0.5) mg/dL AST 24 (5-31) U/L ALT 20 (0-31) U/L Alkaline Phosphatase 77 (39-117) U/L Troponin I High Sens < 2.7 (<3.5-17.0) ng/L Total Protein 7.5 (6.5-8.0) g/dL Albumin 3.8 (3.5-5.0) g/dL Urine Color Yellow Urine Appearance Clear Urine pH 7.5 (5.0-9.0) Ur Specific [place] 1.010 (1.005-1.025) Urine Protein Negative (Neg-Trace) mg/dL Urine Glucose (UA) Negative (Negative) mg/dL Urine Ketones Negative (Negative) mg/dL Urine Blood Negative (Negative) Urine Nitrite Negative (Negative) Ur Leukocyte Esterase Negative (Negative) Influenza Type A (PCR) NEGATIVE (Negative) Influenza Type B (PCR) NEGATIVE (Negative) RSV RNA Qual (PCR) NEGATIVE (Negative) SARS-CoV-2 RNA (RT-PCR) NEGATIVE (Negative) Independent Interpretation I performed an independent interpretation of an: EKG and Plain X-Ray Interpretation: EKG: Normal sinus rhythm, rate 60 beats per minute, normal [place] interval, no evidence of STEMI No evidence of acute disease on CXR Radiology Impression Discussion of test interpretation with radiology: I have reviewed the radiologist's reading. Radiologist Impression: XR/XR chest 2V IMPRESSION: Mildly hypoexpanded but otherwise no evidence of acute disease. External Record Review External record reviewed: Inpatient record, Office record and Outpatient record Scores Heart Score History: -0- slightly suspicious ECG: -0- normal Age: -1- >45 - <65 Risk factory: -0- no risk factors known Troponin: -0- < or = normal limit Score: 1 Risk: 1.7% Discharge Plan Discharge Clinical Impression: Viral illness Patient Disposition: Home, Self-Care Instructions: Viral Syndrome (ED) Additional Instructions: You have been evaluated in the emergency department today for fever, body aches, chest pain, and diarrhea. Your evaluation, including labs, urinalysis, x-ray, and EKG, suggests that your symptoms are due to a viral illness. Please follow-up with your primary care physician within 2 days. Return to the emergency department if you experience worsening chest pain, shortness of breath, fever 100.4? F or greater, or any other concerning symptoms. Prescriptions: No Action cyclobenzaprine 10 mg tablet 10 mg PO BEDTIME PRN (Reason: muscle spasm) Qty: 30 1RF gabapentin 400 mg capsule 400 mg PO TID Qty: 90 4RF cholecalciferol (vitamin D3) [Vitamin D3] 50 mcg (2,000 unit) capsule 50 mcg PO DAILY Qty: 30 5RF amitriptyline 75 mg tablet 75 mg PO BEDTIME omeprazole 20 mg capsule,delayed release(DR/EC) 20 mg PO DAILY meclizine 25 mg tablet 25 mg PO TID clonazepam 1 mg tablet 1 mg PO BID simvastatin 10 mg tablet 10 mg PO DAILY naproxen 500 mg tablet 500 mg PO BID Qty: 28 0RF duloxetine 60 mg capsule,delayed release(DR/EC) 60 mg PO DAILY Interventions: ED Discharge Assessment Last Done: 04/25/23 03:09 Discharge Date/Time: 04/25/23 03:10
[2023-04-24 21:26] LABS: MANUAL DIFF FLAG NO
[2023-04-24 21:28] LABS: Basophils Percent Auto 0.5 % (0-2); Eosinophils Absolute Auto 0.2 X10*3/uL (0.0-0.4); Eosinophils Percent Auto 2.2 % (0-4); Hematocrit 35.1 % (37.0-47.0); Hemoglobin 11.6 g/dl (12.0-16.0); Imm Gran Abs Auto 0.03 X10*3/uL (0.00-0.03); Imm Gran Pct Auto 0.4 % (0.0-0.4); Lymphocytes Absolute Auto 4.1 X10*3/uL (1.2-4.9); Lymphocytes Percent Auto 51.8 % (20-40); Mean Corpuscular Hemoglobin 29.1 pg (27.0-33.0); Mean Corpuscular Volume 88.2 fL (80.0-98.0); Mean Platelet Volume 8.9 fL (9.4-12.3); Monocytes Absolute Auto 0.8 X10*3/uL (0.1-1.2); Monocytes Percent Auto 10.5 % (2-11); Neutrophils Absolute Auto 2.7 x10*3/uL (2.0-8.3); Neutrophils Percent Auto 34.6 % (45-73); Platelet Count 334 X10*3/uL (160-400); Red Blood Count 3.98 X10*6/uL (4.20-5.50); Red Cell Distribution Width 12.4 % (11.0-16.0); White Blood Count 7.9 X10*3/uL (4.8-10.8)
[2023-04-24 21:53] LABS: Alanine Aminotransferase 20 U/L (0-31); Albumin Level 3.8 g/dL (3.5-5.0); Alkaline Phosphatase 77 U/L (39-117); Anion Gap 12 (12-20); Aspartate Amino Transferase 24 U/L (5-31); Bilirubin Direct < 0.2 mg/dL (0.0-0.5); Bilirubin Total 0.2 mg/dL (0.0-1.0); Blood Urea Nitrogen 7 mg/dL (9-16); Calcium 9.5 mg/dL (8.4-10.2); Carbon Dioxide 29 mmol/L (22-29); Chloride 105 mmol/L (96-108); Creatinine Clr Calc Pharmacy 86.4; Estimated Glomerular Filt Rate > 60; Glucose Random 91 mg/dL (60-115); Magnesium 2.3 mg/dL (1.6-2.6); Potassium 4.1 mmol/L (3.3-5.1); Sodium 142 mmol/L (135-145); Total Protein 7.5 g/dL (6.5-8.0)
[2023-04-24 22:10] LABS: Troponin-I High Sensitivity < 2.7 ng/L (<3.5-17.0)
[2023-04-24 22:37] LABS: Influenza A PCR NEGATIVE (Negative); Influenza B PCR NEGATIVE (Negative); Resp Syncy Virus RNA Qual PCR NEGATIVE (Negative); SARS COV2 PCR INHOUSE NEGATIVE (Negative)
[2023-04-24 23:57] VITALS: BP 127/79; PULSE 62; RESP 16; TEMP 36.8; O2SAT 98
--- NOTE | 2023-04-25 00:52 | ECG_ITS ---
Test Reason : CHEST PAIN Blood Pressure : / mmHG Vent. Rate : 060 BPM Atrial Rate : 060 BPM P-R Int : 134 ms QRS Dur : 080 ms QT Int : 438 ms P-R-T Axes : 053 024 039 degrees QTc Int : 438 ms Normal sinus rhythm Normal ECG When compared with ECG of 03-MAR-2020 02:37, No significant change was found Referred By: Bebe Wall Electronically Signed By:HUGO MAO
--- NOTE | 2023-04-25 01:22 | MHC.EDTECH ---
patient urine sample collected and sent to lab ,ekg taken and was read by provider .
[2023-04-25 01:29] LABS: Appearance Urine Clear; Color Urine Yellow; Glucose Urine UA Negative (Negative); Leukocyte Esterase Urine Negative (Negative); Nitrite Urine Negative (Negative); PH 7.5 (5.0-9.0); Urine Blood Negative (Negative); Urine Ketones Negative (Negative); Urine Protein Negative (Neg-Trace)
[2023-04-25 01:58] VITALS: BP 131/84; PULSE 62; RESP 16; TEMP 36.8; O2SAT 98
[2023-04-25 03:08] VITALS: BP 128/74; PULSE 70; RESP 16; O2SAT 98
== END 2023-04-25 03:10 | disposition home or self-care (01) ==
PROVIDERS: Physician Assistant Medical; Emergency Provider Emergency Medicine Emergency Medical Services; PCP Internal Medicine
DX: B34.9 Viral infection, unspecified (principal); R50.9 Fever, unspecified; E78.5 Hyperlipidemia, unspecified; R42 Dizziness and giddiness; R07.9 Chest pain, unspecified; R19.7 Diarrhea, unspecified; Z20.828 Contact with and (suspected) exposure to other viral communicable diseases
CPT/HCPCS: 0241U; 36415; 71046; 80048; 80076; 81003; 83735; 84484; 85025; 93005; 99284

== ENCOUNTER 2023-11-02 13:41 | Outpatient (REF) | payer MEDICARE, MEDICAID, SELFPAY ==
[2023-11-02 14:37] LABS: Basophils Percent Auto 0.3 % (0-2); Eosinophils Absolute Auto 0.2 X10*3/uL (0.0-0.4); Eosinophils Percent Auto 1.6 % (0-4); Hematocrit 38.2 % (37.0-47.0); Hemoglobin 12.5 g/dl (12.0-16.0); Imm Gran Abs Auto 0.06 X10*3/uL (0.00-0.03); Imm Gran Pct Auto 0.5 % (0.0-0.4); MANUAL DIFF FLAG SCAN; Mean Corpuscular HGB Conc 32.7 g/dl (31.0-35.0); Mean Corpuscular Hemoglobin 29.3 pg (27.0-33.0); Mean Corpuscular Volume 89.5 fL (80.0-98.0); Mean Platelet Volume 9.7 fL (9.4-12.3); Monocytes Absolute Auto 1.3 X10*3/uL (0.1-1.2); Monocytes Percent Auto 10.7 % (2-11); Neutrophils Absolute Auto 4.7 x10*3/uL (2.0-8.3); Neutrophils Percent Auto 37.9 % (45-73); Platelet Count 417 X10*3/uL (160-400); Red Blood Count 4.27 X10*6/uL (4.20-5.50); Red Cell Distribution Width 11.7 % (11.0-16.0); SCAN SMEAR FLAG 1; White Blood Count 12.5 X10*3/uL (4.8-10.8)
[2023-11-02 14:39] LABS: Lymphocytes Absolute Auto 6.1 X10*3/uL (1.2-4.9)
[2023-11-02 15:11] LABS: Alanine Aminotransferase 20 U/L (0-31); Alkaline Phosphatase 86 U/L (39-117); Anion Gap 12 (12-20); Aspartate Amino Transferase 23 U/L (5-31); Bilirubin Total 0.2 mg/dL (0.0-1.0); Blood Urea Nitrogen 12 mg/dL (9-16); Calcium 9.9 mg/dL (8.4-10.2); Carbon Dioxide 27 mmol/L (22-29); Chloride 104 mmol/L (96-108); Cholesterol 197 mg/dL (<200); Estimated Glomerular Filt Rate > 60; Glucose Fasting 117 mg/dL (60-99); HDL Cholesterol 48 mg/dL (>40); LDL Cholesterol Calculated 118 mg/dL (<100); Potassium 3.9 mmol/L (3.3-5.1); Sodium 139 mmol/L (135-145); Triglycerides 159 mg/dL (<150)
[2023-11-02 15:27] LABS: Thyroid Stimulating Hormone 6.62 uIU/mL (0.32-4.0)
[2023-11-02 15:42] LABS: SLIDE REVIEW VERIFIED
[2023-11-05 07:28] LABS: TS Negative Control Passed; TS Panel A 0; TS Panel B 0; TS Positive Control Passed; TSpotTB Negative (Negative)
== END 2023-11-02 13:42 | disposition home or self-care (01) ==
LOC: HO.LAB 13:41
PROVIDERS: PCP Internal Medicine; Visit Provider Internal Medicine
DX: Z11.1 Encounter for screening for respiratory tuberculosis (principal); E78.00 Pure hypercholesterolemia, unspecified; K58.1 Irritable bowel syndrome with constipation; M79.7 Fibromyalgia
CPT/HCPCS: 36415; 80053; 80061; 84443; 85025; 86481

== ENCOUNTER 2024-06-22 13:26 | Outpatient (AMB) | payer MEDICARE, MEDICAID, SELFPAY ==
[2024-06-22 13:28] VITALS: BP 130/66; PULSE 81; O2SAT 97; BMI 39.1
--- NOTE | 2024-06-22 13:28 | A.OFFVIS_ITS ---
Vital Signs 06/22/24 13:28 Height 5 ft 1 in Weight 207 lb BMI 39.1 BP 130/66 Blood Pressure Location Lt brachial Position Sitting Pulse 81 Pulse Source Pulse Oximeter Pulse Oximetry (%) 97 Oxygen Delivery Method Room Air Intake Visit Reasons: FM Intake Note: Patient presents for follow up on fibromyalgia, she was last seen in the office by Dr. Sosa on 03/23/23. Patient is complaining of right shoulder pain that travels down her arm, with limited movement, can hardly lift her arm at times. Allergies No Known Allergies Allergy (Mild, Verified 06/22/24 13:31) NONE Medication List - Last Reconciled 06/22/24 by Yuliana Gonzalez MD amitriptyline 75 mg PO BEDTIME [id number] 250-250-65 mg (Excedrin Migraine) 1 tab PO Q4-6H PRN cholecalciferol (vitamin D3) (Vitamin D3) 50 mcg PO DAILY clonazepam 1 mg PO BID cyclobenzaprine 10 mg PO BEDTIME PRN duloxetine 60 mg PO DAILY gabapentin 400 mg PO TID hydroxyzine HCl 25 mg PO TID meclizine 25 mg PO TID naproxen 500 mg PO BID omeprazole 20 mg PO DAILY simvastatin 10 mg PO DAILY HPI Comments Details: Patient is a 54-year-old female with hyperlipidemia, osteoarthritis of bilateral knees, depression and fibromyalgia who is here today for follow-up Interval History: Patient last seen 03/23/[address] Deion Sosa. At that time she continued with widespread pain in spite of 400 mg gabapentin 3 times a day, Flexeril 10 mg every night, Elavil 75 mg every night and duloxetine. Specifically she was complaining of hip pain as she was status post fall. Today patient complain of severe left knee pain. Unable to walk up stairs to get to her proximal end. Also complaining of whole-body pain that is persistent. She states that the medication helps a little bit but does not take away her pain completely. Rheumatologic History: Fibromyalgia Osteoarthritis bilateral knees Current Rheumatology Medication(s): Duloxetine 60 mg daily Gabapentin 400 mg 3 times a day Amitriptyline 75 mg at night Cyclobenzaprine 10 mg at night [facility] Medical History Acid reflux Anxiety High cholesterol Vertigo Surgical History History of section History of tubal ligation Family History Mother No problems noted. Father No problems noted. Social History Alcohol intake: never Patient Tobacco Use Status: Never used Tobacco Current occupational status: unemployed Review of Systems Const Details: Review of Systems Constitutional: Denies fever, chills, weight loss ENT: Denies vision changes, eye pain or eye redness, dental caries, dry mouth GI: Denies nausea, vomiting, diarrhea, abdominal pain, change in BM Pulm: Denies SOB, MENDEZ, hemoptysis, wheezing Cards: Denies chest pain, palpitations Skin: Denies Raynaud's, rash, nail changes, photosensitivity, [place]UNTER: Denies headaches, weakness, paresthesias, recurrent falls MSK: as per HPI All other systems reviewed and are unremarkable except noted above Physical Exam Vital Signs: BMI result Body Mass Index 39.1 Physical Examination CONSTITUITIONAL Patient alert and cooperative. Well appearing and in no apparent painful distress HEENT Conjunctiva and sclera clear. ?Pupils equal round and reactive to light. ?No lymphadenopathy. ?Normal dentition. No oral or nasal ulcers noted. No evidence of discoid rash to the aubrey of ears CHEST/RESPIRATORY SYSTEM Normal respiratory effort and able to speak in complete sentences. ?Clear to auscultation bilaterally. ?No crackles, rales, rhonchi, wheezes heard. CARDIAC SYSTEM Regular rate and rhythm. ?S1 and S2 heard no murmurs. ?Radial pulses intact bilaterally MSK Hands: ?Good mother superior strength bilaterally - 5/5. ?No deformities noted. ?No synovitis noted to the MCPs, PIPs or DIPs. ?No tenderness to palpation of these joints. Wrists: ?Full range of motion at the wrists without pain. ?No tenderness to palpation or synovitis noted to the wrists. Elbows: Full range of motion without pain. No tenderness, weakness, swelling, increased warmth or erythema. Shoulders: Full range of motion without pain. No tenderness, weakness, swelling, increased warmth or erythema. Hips: Full range of motion without pain. Hip bursa: No tenderness to palpation Knees: ?Full range of motion. ?No tenderness, swelling, increased warmth or erythema.? Bilateral crepitations noted Ankles: Full range of motion. ?No tenderness, swelling, increased warmth or erythema.? Feet: ?Negative squeeze test. ?No tenderness to palpation or swelling of the MTPs. Tender points:? Tenderness to palpation of the neck, shoulders, chest, elbows, hips, buttocks or knees. SKIN Skin intact without rashes. Office Procedures AMB Joint Injection/Aspiration Joint Injection/Aspiration Details: Procedure was explained to the patient and consent was obtained. ? The area of interest was identified and confirmed with patient. ?This was subsequently cleaned with chlorhexidine x3. ? The area was then anesthetized using ethyl chloride spray. 80 mg Kenalog with 1 cc 1% lidocaine was injected without issue. ?Minimal to no bleeding. ?Patient tolerated procedure. Primary Site: left knee Prep: site was prepped using aseptic technique, ethochloride spray was applied and injection warnings given Injected: 80 mg of, Kenalog, with 1 mL of and 1% plain lidocaine Approach Used: medial parapatellar Procedure: The patient tolerated the procedure well Coding 84644 - Large joint Procedure code (CPT) selection complete Office Meds Kenalog 40 mg/mL suspension for injection Performing Provider: Yuliana Gonzalez MD Performing Location: [facility] [place] Rheumatology Administered by: Yuliana Gonzalez MD on 06/22/24 14:14 Dose Route Admin Location Dispensed Lot Number Expiration Date [facility] [employer] 80 mg intra-articular Left knee 2 mL [id number] 02/06/26 [address]-4 [employer] lidocaine (PF) 10 mg/mL (1 %) injection solution Performing Provider: Yuliana Gonzalez MD Performing Location: [facility] [place] Rheumatology Administered by: Yuliana Gonzalez MD on 06/22/24 14:14 Dose Route Admin Location Dispensed Lot Number Expiration Date [facility] [employer] 10 mg intra-articular Left knee 2 mL [id number] 11/07/26 24809-965-08 [facility] [employer] Results Reviewed Results Reviewed: Laboratory Tests 05/12/18 04/20/23 14:45 11:28 ESR 31 H Rheumatoid Factor < 15.0 Hip XR 03/2023 FINDINGS: Visualized portion of the proximal right femur demonstrate no fracture. Right femoral head is well-seated within the acetabulum. There is mild narrowing of the femoral acetabular joint space. Small osteophyte along the superolateral acetabular margin. Small enthesophytes off the greater trochanter of the right hip. The pelvic ring is intact. The left hip is grossly unremarkable. Assessment & Plan Assessment & Plan (1) Fibromyalgia: Code(s): M79.7 - Fibromyalgia Category: Medical Plan: #Fibromyalgia Patient will continue pains due to fibromyalgia. We will trial increasing gabapentin to 800 mg at night and continuing 400 mg in the morning and afternoon. She is to continue all the other medications including amitriptyline, cyclobenzaprine, duloxetine. (2) Osteoarthritis of knees, bilateral: Comment: Mostly patellofemoral Code(s): M17.0 - Bilateral primary osteoarthritis of knee Category: Medical Qualifiers: Osteoarthritis type: primary Qualified Code(s): M17.0 - Bilateral primary osteoarthritis of knee Plan: #Bilateral primary knee osteoarthritis Status post steroid injections of the left knee today. Letter written to help get patient an apartment on the 1st floor or inability with an elevator Plan I spent 20 minutes reviewing the record and labs, seeing the patient, discussing the treatment plan and documenting in the medical record ? Orders: Orders AMB Joint Injection/Aspiration Today M17.0 - Bilateral primary osteoarthritis of knee Medications: New lidocaine (PF) 10 mg intra-articular ONCE 2 mL 0RF M17.0 - Bilateral primary osteoarthritis of knee duloxetine 60 mg PO DAILY 90 caps 2RF M79.7 - Fibromyalgia Kenalog (triamcinolone acetonide) 80 mg (2 mL) intra-articular ONCE 2 mL 0RF NS M17.0 - Bilateral primary osteoarthritis of knee amitriptyline 75 mg PO BEDTIME 90 tabs 2RF M79.7 - Fibromyalgia Changed From gabapentin 400 mg PO TID 90 caps 4RF M79.7 - Fibromyalgia To gabapentin Take one pill in the morning, one pill in the afternoon and two pills at night 400 mg PO TID 120 caps 4RF M79.7 - Fibromyalgia Refilled cyclobenzaprine 10 mg PO BEDTIME PRN 30 tabs 1RF muscle spasm Coding Level of Care Code Est Pt Level 3 (48706) Diagnoses Fibromyalgia M79.7 Primary osteoarthritis of both knees M17.0 Osteoarthritis type: primary CPT Codes Coding - 81419 Large joint: 32554 - Large joint ([id number])
== END 2024-06-22 14:13 | disposition home or self-care (01) ==
PROVIDERS: PCP Internal Medicine; Visit Provider Student in an Organized Health Care Education/Training Program
DX: M79.7 Fibromyalgia (principal); M17.0 Bilateral primary osteoarthritis of knee
CPT/HCPCS: 20610; 99213

== ENCOUNTER → 2024-06-22 13:26 | Outpatient (BNVA) | payer MEDICARE, MEDICAID, SELFPAY | PROVIDERS: PCP Internal Medicine; Visit Provider Student in an Organized Health Care Education/Training Program | DX: M79.7 Fibromyalgia (principal); M17.0 Bilateral primary osteoarthritis of knee | CPT/HCPCS: 20610; 99212; J2003; J3300 ==

== ENCOUNTER 2024-08-18 13:53 | Outpatient (REF) | payer MEDICARE, MEDICAID, SELFPAY | END 2024-08-18 13:54 | disposition home or self-care (01) | LOC: HO.MAMMO 13:53 | PROVIDERS: PCP Internal Medicine; Visit Provider Internal Medicine | DX: Z12.31 Encounter for screening mammogram for malignant neoplasm of breast (principal) | CPT/HCPCS: 77063; 77067 ==

== ENCOUNTER → 2024-08-18 14:15 | Outpatient (BNV) | payer MEDICARE, MEDICAID, SELFPAY | PROVIDERS: PCP Internal Medicine; Visit Provider Internal Medicine | DX: Z12.31 Encounter for screening mammogram for malignant neoplasm of breast (principal) | CPT/HCPCS: 77063; 77067 ==

== ENCOUNTER 2024-11-09 14:48 | Outpatient (REF) | payer MEDICARE, MEDICAID, SELFPAY ==
[2024-11-10 02:44] LABS: CT PCR NOT DETECTED (Not Detect.); NG PCR NOT DETECTED (Not Detect.)
[2024-11-10 11:54] LABS: Bacterial Vaginosis PCR NEGATIVE (Negative); Candida Group PCR NOT DETECTED (Not Detect); Candida glab krusei PCR NOT DETECTED (Not Detect); Trichomonas vaginalis PCR NOT DETECTED (Not Detect)
== END 2024-11-09 14:49 | disposition home or self-care (01) ==
LOC: HO.LAB 14:48
PROVIDERS: PCP Internal Medicine; Visit Provider Advanced Practice Midwife
DX: Z01.419 Encounter for gynecological examination (general) (routine) without abnormal findings (principal); Z20.2 Contact with and (suspected) exposure to infections with a predominantly sexual mode of transmission; R10.2 Pelvic and perineal pain; Z11.51 Encounter for screening for human papillomavirus (HPV); Z72.89 Other problems related to lifestyle
CPT/HCPCS: 81003; 81515; 87491; 87591; 87626; 88175; 99202; G0101; Q0091

== ENCOUNTER 2024-11-09 14:48 | Outpatient (AMB) | payer MEDICARE, MEDICAID, SELFPAY ==
--- NOTE | 2024-11-09 14:53 | MHC.OFFVIS ---
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 She is doing well with pmo manager concerns: reports a non tender pimple on right the labia, unable to squeeze it. Currently not sexually active. Denies any vaginal dryness or irritation. STI testing offered; she accepts. Admits to not eating well or participate in any exercise due to her depression. Admits to constipation. Last pap smear; years ago, reports all normal. Last mammogram; 2024. Colonoscopy is UTD. Family history of breast or colon cancer. [facility] Medical History (Updated 11/09/24 @ 15:26 by Barbi Lima CNM) Pelvic pain Acid reflux High cholesterol Vertigo Anxiety Surgical History History of tubal ligation History of section Family History (Updated 11/09/24 @ 15:00 by FERNY Smart) Mother No problems noted. Father Colon cancer Brother Colon cancer Family/Other History of breast cancer Social History Alcohol intake: never Patient Tobacco Use Status: Never used Tobacco Current occupational status: unemployed Female Reproductive History Menstrual Total pregnancies: 3 Full term: 3 Number of Living Children: 3 Date of Mammogram: 08/18/24 (Birad 1) Review of Systems Const All systems reviewed & are unremarkable except as noted in HPI and below Reports as per HPI Eyes Reports no additional complaints ENT Reports no additional complaints Card Reports no additional complaints Resp Reports no additional complaints GI Reports as per HPI and Reports no additional complaints Reports as per HPI Musc Reports no additional complaints Skin/Breast Reports as per HPI Neuro Reports no additional complaints Psych Reports no additional complaints Endo Reports no additional complaints Mihir/Lymph Reports no additional complaints Aller/Immun Reports no additional complaints Physical Exam Vital Signs: Last Vital Signs BP 114/76 11/09/24 14:54 BMI result Body Mass Index 40.1 Const General: cooperative, healthy appearing, no acute distress, well developed and alert Orientation/consciousness: patient oriented x3 HEENT Head: Yes normal to inspection Eyes General: appearance normal, both eyes and all related structures Neck Neck: Yes normal visual inspection Thyroid: Thyroid normal Chest Chest palpation & inspection: normal inspection of the chest and other (no puckering, dimpling, peau de orange, retraction, discharge, masses) Breast/axilla inspection: normal inspection of the breasts Breast/axilla palpation: normal palpation of the breasts Resp Effort & Inspection: normal respiratory effort GI Inspection: Yes normal to inspection Palpation (GI): Soft to palpation and Tenderness to palpation present (GI) (Bilateral abdominal wall) Rectal Exam - Female: deferred Other: 2-3mm firm milia on lower right labial-not infected or inflamed. General: Yes bladder normal to palpation External Female Exam: normal external appearance and normal appearance of the urethra Speculum Exam - Vagina: normal appearance of the vagina, normal palpation, normal vaginal discharge and vagina atrophic Speculum Exam - Cervix: normal appearance of the cervix, normal palpation and Other cervical findings present (Bled slightly with Pap) Bimanual exam- vagina & uterus: normal bimanual exam, normal palpation, uterine size normal, bladder normal to palpation, normal palpation and non-tender Bimanual Exam- Adnexa, other: no masses Skin General skin exam: no rashes or lesions noted Rashes: no rashes Neuro General: patient oriented x3 Cognition (Neuro): normal cognition Extrem General: Yes normal to inspection Psych Attitude: cooperative Thought process: Normal thought process present Results AMB Urinalysis, Automated UA Leukoctes 1 Suzanna/uL Last Edit by FERNY Smart on 11/09/24 15:50 UA Nitrite Negative Last Edit by FERNY Smart on 11/09/24 15:50 UA Urobilinogen 0 mg/dL Last Edit by FERNY Smart on 11/09/24 15:50 UA Protein 1 mg/dL Last Edit by FERNY Smart on 11/09/24 15:50 UA pH 6.0 Last Edit by FERNY Smart on 11/09/24 15:50 UA Blood 0 Rell/uL Last Edit by Pao Castillo FERNY on 11/09/24 15:50 UA Specific [place] 1.020 Last Edit by Pao Castillo FERNY on 11/09/24 15:50 UA Ketone Negative Last Edit by FERNY Smart on 11/09/24 15:50 UA Bilirubin 1 mg/dL Last Edit by Pao Castillo FERNY on 11/09/24 15:50 UA Glucose 0 mg/dL Last Edit by Pao Castillo FERNY on 11/09/24 15:50 Assessment & Plan Assessment & Plan (1) Encounter for well woman exam with routine gynecological exam: Code(s): Z01.419 - Encounter for gynecological examination (general) (routine) without abnormal findings Category: Medical Plan: Discussed: Current recommendations for pap smears per ASCCP guidelines. Breast awareness, periodic self breast exams and yearly mammogram. Maintain a healthy lifestyle, well balanced diet including Calcium 1,200 mg and Vitamin D 600 IU daily, and routine exercise. Contact the office with any postmenopausal bleeding. Advised not to squeeze the area of the labia. No need for treatment or removal it is a benign finding. Patient verbalizes understanding and agrees to the plan of care. She was given opportunity to ask questions and all questions were answered to the best of my ability. RTO in 1 year for annual pmo manager exam. This note is constructed using voice recognition software. While every effort has been made to ensure accuracy, story reader errors may have been included. (2) Pelvic pain: Code(s): R10.2 - Pelvic and perineal pain Category: Medical Plan: Pelvic pain workup to include pelvic ultrasound, UA, GC chlamydia and BV panel. Follow up in person for test results. Counseled regarding constipation prevention including increasing fluid, fiber, and increasing physical activity. Advised to follow up with the primary care for GI discomfort. Plan Total time I personally spent on visit and management today: ?10 minutes. Time spent included review of pertinent office notes in the electronic health record; review of laboratory and imaging results; review of personal family medical history; performing physical exam; discussing diagnosis and plan of care with the patient; documenting the encounter in the EMR. Orders: Orders Bacterial Vaginosis Panel Today Z20.2 - Contact with and (suspected) exposure to infections with a predominantly sexual mode of transmission HPV High risk Today Z01.419 - Encounter for gynecological examination (general) (routine) without abnormal findings Pap Smear Today Z01.419 - Encounter for gynecological examination (general) (routine) without abnormal findings CT NG by PCR Today Z20.2 - Contact with and (suspected) exposure to infections with a predominantly sexual mode of transmission US pelvic and transvaginal Today R10.2 - Pelvic and perineal pain Coding Level of Care Code New Pt Level 2 (78041) New Pt Prev Care 40-64y(16846) Diagnoses Encounter for well woman exam with routine gynecological exam Z01.419 Pelvic pain R10.2
[2024-11-09 14:54] VITALS: BP 114/76; BMI 40.1
== END 2024-11-09 15:39 | disposition home or self-care (01) ==
LOC: HO.HWS 14:49
PROVIDERS: PCP Internal Medicine; Visit Provider Advanced Practice Midwife
DX: Z01.419 Encounter for gynecological examination (general) (routine) without abnormal findings (principal); R10.2 Pelvic and perineal pain
CPT/HCPCS: 99202; G0101; Q0091

== ENCOUNTER 2024-11-09 15:25 | Outpatient (REF) | payer MEDICARE, MEDICAID, SELFPAY ==
[2024-11-16 10:24] LABS: HPV Genotype 16 Negative (Negative); HPV Genotype 18 Negative (Negative); HPV High Risk Negative (Negative)
== END 2024-11-09 15:26 | disposition home or self-care (01) ==
LOC: HO.LNP 15:25
PROVIDERS: Visit Provider Advanced Practice Midwife
DX: Z13.89 Encounter for screening for other disorder (principal)
CPT/HCPCS: 87626; 88175

== ENCOUNTER 2024-12-29 15:06 | Outpatient (AMB) | payer MEDICARE, MEDICAID, SELFPAY ==
--- NOTE | 2024-12-29 15:28 | A.OFFPC_ITS ---
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 Accompanied by: Self / Same As Patient Allergies No Known Allergies Allergy (Mild, Verified 12/29/24 15:29) NONE Medication List - Last Reconciled 12/29/24 by TRAM Restrepo amitriptyline 75 mg PO BEDTIME [id number] 250-250-65 mg (Excedrin Migraine) 1 tab PO Q4-6H PRN brexpiprazole (Rexulti) mg PO DAILY cane As directed Use cane to assist with ambulation cholecalciferol (vitamin D3) (Vitamin D3) 50 mcg PO DAILY clonazepam 1 mg PO BID cyclobenzaprine 10 mg PO BEDTIME PRN duloxetine 60 mg PO DAILY gabapentin 400 mg PO TID hydroxyzine HCl 25 mg PO TID meclizine 25 mg PO TID omeprazole 20 mg PO DAILY rimegepant (Nurtec ODT) 75 mg PO Q OTHER DAY simvastatin 10 mg PO DAILY walker As directed use walker to assist with ambulation HPI HPI Comments History of Present Illness Details 54-year-old female with history of fibro myalgia, persistent vertigo, polyarthralgia, migraines, and hyperlipidemia presents to the office today for management of chronic conditions as well as to establish care. She tells me that she has been experiencing chronic daily headaches on the right side of the head with a stabbing sensation associated photophobia. She has trialed Excedrin and sumatriptan without relief. She also experiences persistent dizziness which she describes as vertigo with only some relief from meclizine. She is very unsteady on her feet as a result and has had several falls. She is requesting a cane and a walker. She has been following with rheumatology for management of the polyarthralgia and fibromyalgia. She states overall this is well-controlled but rainy days cause flare-ups of symptoms. She does also report that her mood can fluctuate her symptoms. General: No fevers, malaise, unintentional weight loss HEENT: See HPI Cardiovascular: No chest pain, palpitations, or leg edema Respiratory: No shortness of breath, wheezing, cough MSK: See HPI Neuro: No headaches, weakness, paresthesias. See HPI Skin: No rashes or lesions Exam: Constitutional - Awake and Alert, No apparent distress Eyes - PERRLA, EOMI Cardiovascular - S1S2, RRR, No edema Respiratory - Normal lung expansion, Normal respiratory effort, No respiratory distress, CTA bilaterally Extremities - no calf tenderness bilaterally, no swelling Skin - Warm/Dry Neurological - Alert & oriented x3, Psychological - Appropriate affect [facility] Medical History (Updated 12/29/24 @ 17:27 by TRAM Restrepo) Pelvic pain Acid reflux High cholesterol Vertigo Anxiety Surgical History History of tubal ligation History of section Family History (Updated 11/09/24 @ 15:00 by FERNY Smart) Mother No problems noted. Father Colon cancer Brother Colon cancer Family/Other History of breast cancer Social History Alcohol intake: never Patient Tobacco Use Status: Never used Tobacco Current occupational status: unemployed Questionnaire PHQ-9 Over the last 2 weeks, how often have you been bothered by any of the following problems? 1. Little interest or pleasure in doing things: more than half the days 2. Feeling down, depressed, or hopeless: more than half the days 3. Trouble falling or staying asleep, or sleeping too much: more than half the days 4. Feeling tired or having little energy: more than half the days 5. Poor appetite or overeating: several days 6. Feeling bad about yourself - or that you are a failure or have let yourself or your family down: more than half the days 7. Trouble concentrating on things, such as reading the newspaper or watching television: more than half the days 8. Moving or speaking so slowly that other people could have noticed. Or the opposite - being so fidgety or restless that you have been moving around a lot more than usual: more than half the days 9. Thoughts that you would be better off or of hurting yourself in some way: not at all Total score: 15 Source: Developed by Rona CrowleyW. Eduardo, George Rogers and colleagues, with an educational darian from [employer]. Thrive Questionnaire I am a: Patient What is your living situation today?: I have a steady place to live Within the past 12 months, did the food you bought not last and you didn't have the money to get more?: Never true Within the past 12 months, did you worry whether your food would run out before you got money to buy more?: Never true Do you have trouble paying for medicines?: No Do you have trouble getting transportation to medical appointments?: No Do you have trouble paying your heating and electricity bill?: No Do you have trouble taking care of your child, family member or friend?: No Do you have trouble with day-to-day activities such as bathing, preparing meals, shopping, managing finances, etc.?: No Are you currently unemployed and looking for a job?: No Are you interested in more education?: No Please select the resources that you would like help with: None THRIVE Score: 0 REGINE-7 AMB Questionnaire REGINE-7 Feeling nervous, anxious, or on edge: 1 = Several days Not being able to stop or control worryin = Several days Worrying too much about different things: 1 = Several days Trouble relaxin = Several days Being so restless that it is hard to sit still: 1 = Several days Becoming easily annoyed or irritable: 1 = Several days Feeling afraid as if something awful might happen: 2 = More than half the days Total REGINE-7 score (0-4 normal; 5-9 mild; 10-14 moderate; 15-21 severe): 8 Source: Developed by Drs. Han Brannon, Rona Clark, George Rogers and colleagues, with an educational darian from [employer]. Physical exam (Primary Care) Vital Signs: Last Vital Signs Temp 97.5 F 12/29/24 15:31 Pulse 93 12/29/24 15:31 Resp 16 12/29/24 15:31 BP 110/84 12/29/24 15:31 Pulse Ox 96 12/29/24 15:31 Oxygen Delivery Method Room Air 12/29/24 15:31 BMI result Body Mass Index 40.1 Tobacco/Smoking Status: Tobacco use Status Patient Tobacco Use Status Never used Tobacco 12/29/24 15:33 PHQ-9: PHQ-9 Score PHQ-9: Total score 15 12/29/24 16:55 Coding Level of Care Code New Pt Level 4 (09011) Complex EM visit Add On G2211 Diagnoses Chronic daily headache R51.9 Fibromyalgia M79.7 Depression F32.A High cholesterol E78.00 Assessment & Plan Assessment & Plan (1) Chronic daily headache: Code(s): R51.9 - Headache, unspecified Category: Medical Plan: Chronic migraine headaches that occur daily. Given associated nearly intractable vertigo with chronic daily headaches, MRI of the brain is ordered for further assessment. [facility] as she has failed sumatriptan and Excedrin. She is counseled on side effects as well as dosing. (2) Fibromyalgia: Code(s): M79.7 - Fibromyalgia Category: Medical Plan: Follow-up with rheumatology as scheduled. Continue gabapentin, duloxetine, and amitriptyline. Recommend regular exercise and avoidance of inflammatory foods. (3) Depression: Code(s): F32.A - Depression, unspecified Category: Medical Plan: Stable. Continue duloxetine and amitriptyline. (4) High cholesterol: Code(s): E78.00 - Pure hypercholesterolemia, unspecified Category: Medical Plan: Lipid panel ordered. Continue simvastatin. Recommend diet lower in fat and unhealthy oils Plan Follow-up in the office in 6 months. Continue following with specialists. MRI of the brain is ordered. Labs to be completed today. She is also referred for screening colonoscopy. Orders for cane and walker placed Orders: Orders MR head/brain wo con Today H53.149 - Visual discomfort, unspecified, R42 - Dizziness and giddiness, R51.9 - Headache, unspecified Complete Blood Count Auto Diff Today E66.9 - Obesity, unspecified, E78.00 - Pure hypercholesterolemia, unspecified, M79.7 - Fibromyalgia, R51.9 - Headache, unspecified, R79.89 - Other specified abnormal findings of blood chemistry Hemoglobin A1c Today E66.9 - Obesity, unspecified, E78.00 - Pure hy percholesterolemia, unspecified, M79.7 - Fibromyalgia, R51.9 - Headache, unspecified, R79.89 - Other specified abnormal findings of blood chemistry TSH reflex Free T4 Today E66.9 - Obesity, unspecified, E78.00 - Pure hypercholesterolemia, unspecified, M79.7 - Fibromyalgia, R51.9 - Headache, unspecified, R79.89 - Other specified abnormal findings of blood chemistry Basic Metabolic Panel Today E66.9 - Obesity, unspecified, E78.00 - Pure hypercholesterolemia, unspecified, M79.7 - Fibromyalgia, R51.9 - Headache, unspecified, R79.89 - Other specified abnormal findings of blood chemistry Lipid Panel Today E66.9 - Obesity, unspecified, E78.00 - Pure hypercholesterolemia, unspecified, M79.7 - Fibromyalgia, R51.9 - Headache, unspecified, R79.89 - Other specified abnormal findings of blood chemistry Vitamin D 25-OH Total Today E55.9 - Vitamin D deficiency, unspecified Referrals Gastroenterology Referral Z12.11 - Encounter for screening for malignant neoplasm of colon Medications: New rimegepant (Nurtec ODT) 75 mg PO Q OTHER DAY 45 tabs 1RF cane As directed Use cane to assist with ambulation 1 ea 0RF walker As directed use walker to assist with ambulation 1 ea 0RF R26.81 - Unsteadiness on feet, R42 - Dizziness and giddiness, Z91.81 - History of falling
[2024-12-29 15:31] VITALS: BP 110/84; PULSE 93; RESP 16; TEMP 36.4; O2SAT 96; BMI 40.1
== END 2024-12-29 15:53 | disposition home or self-care (01) ==
LOC: HO.HMCHD 15:07
PROVIDERS: PCP Physician Assistant; Visit Provider Physician Assistant
DX: R51.9 Headache, unspecified (principal); M79.7 Fibromyalgia; F32.A Depression, unspecified; E78.00 Pure hypercholesterolemia, unspecified

== ENCOUNTER → 2024-12-29 15:06 | Outpatient (BNVA) | payer MEDICARE, MEDICAID, SELFPAY | PROVIDERS: PCP Physician Assistant; Visit Provider Physician Assistant | DX: G43.909 Migraine, unspecified, not intractable, without status migrainosus (principal); M25.50 Pain in unspecified joint; M79.7 Fibromyalgia; F32.A Depression, unspecified; E78.00 Pure hypercholesterolemia, unspecified; H53.149 Visual discomfort, unspecified; R42 Dizziness and giddiness; R79.89 Other specified abnormal findings of blood chemistry; R26.81 Unsteadiness on feet; Z91.81 History of falling | CPT/HCPCS: 96127; 99202 ==

== ENCOUNTER 2025-01-08 18:08 | Outpatient (REF) | payer MEDICARE, MEDICAID, SELFPAY ==
--- NOTE | ~2025-01-08 | MR_ITS ---
EXAMINATION: MR BRAIN WITHOUT IV CONTRAST HISTORY: R51.9 - Headache, unspecified TECHNIQUE: Sagittal T1, and axial T1, FLAIR, T2, gradient echo, and diffusion weighted MR images of the brain were obtained. COMPARISON: Comparison is made with the prior examination dated 06/04/2021. FINDINGS: The brain parenchyma is unremarkable, demonstrating normal morales/white differentiation. No foci of abnormal signal intensity are identified. The ventricular system is normal in size and configuration. There is no mass effect or midline shift. No intra or extra-axial fluid collections are identified. There are no foci of restricted diffusion. Normal vascular flow voids are noted in the basilar and carotid arteries. The visualized paranasal sinuses are clear. Again seen is prominence of the lingual tonsils. MR/MR head/brain wo con IMPRESSION: No acute intracranial abnormality. Electronically signed by: Han Sánchez MD 01/09/2025 07:33 AM EDT
== END 2025-01-08 18:09 | disposition home or self-care (01) ==
LOC: HO.MRI 18:08
PROVIDERS: PCP Physician Assistant; Visit Provider Physician Assistant
DX: R51.9 Headache, unspecified (principal); H53.149 Visual discomfort, unspecified; R42 Dizziness and giddiness
CPT/HCPCS: 70551

== ENCOUNTER → 2025-01-08 18:08 | Outpatient (BNV) | payer MEDICARE, MEDICAID, SELFPAY | PROVIDERS: PCP Physician Assistant; Visit Provider Radiology Diagnostic Radiology | DX: R51.9 Headache, unspecified (principal) | CPT/HCPCS: 70551 ==

== ENCOUNTER 2025-01-15 13:10 | Outpatient (REF) | payer MEDICARE, MEDICAID, SELFPAY ==
[2025-01-15 13:48] LABS: Basophils Absolute Auto 0.1 X10*3/uL (0.0-0.2); Basophils Percent Auto 0.5 % (0-2); Eosinophils Absolute Auto 0.3 X10*3/uL (0.0-0.4); Eosinophils Percent Auto 2.7 % (0-4); Hematocrit 38.5 % (37.0-47.0); Hemoglobin 12.6 g/dl (12.0-16.0); Imm Gran Abs Auto 0.04 X10*3/uL (0.00-0.03); Imm Gran Pct Auto 0.4 % (0.0-0.4); Lymphocytes Absolute Auto 5.3 X10*3/uL (1.2-4.9); Lymphocytes Percent Auto 49.1 % (20-40); MANUAL DIFF FLAG SCAN; Mean Corpuscular HGB Conc 32.7 g/dl (31.0-35.0); Mean Corpuscular Hemoglobin 29.1 pg (27.0-33.0); Mean Corpuscular Volume 88.9 fL (80.0-98.0); Mean Platelet Volume 9.4 fL (9.4-12.3); Monocytes Percent Auto 8.8 % (2-11); Neutrophils Absolute Auto 4.2 x10*3/uL (2.0-8.3); Neutrophils Percent Auto 38.5 % (45-73); Platelet Count 405 X10*3/uL (160-400); Red Blood Count 4.33 X10*6/uL (4.20-5.50); Red Cell Distribution Width 12.6 % (11.0-16.0); SCAN SMEAR FLAG 1; White Blood Count 10.8 X10*3/uL (4.8-10.8)
[2025-01-15 13:56] LABS: Estimated Average Glucose 146 mg/dL; Hemoglobin A1c % 6.7 % (<6.0); Total Hemoglobin (HGBA1C) 3333.1707 umol/L
[2025-01-15 14:13] LABS: SLIDE REVIEW VERIFIED
[2025-01-15 14:22] LABS: Anion Gap 13 (12-20); Blood Urea Nitrogen 13 mg/dL (9-16); Calcium 9.8 mg/dL (8.4-10.2); Carbon Dioxide 28 mmol/L (22-29); Chloride 104 mmol/L (96-108); Cholesterol 186 mg/dL (<200); Estimated Glomerular Filt Rate > 60; Glucose Random 149 mg/dL (60-115); HDL Cholesterol 42 mg/dL (>40); LDL Cholesterol Calculated 112 mg/dL (<100); Sodium 141 mmol/L (135-145); Triglycerides 161 mg/dL (<150)
[2025-01-15 14:37] LABS: TSH reflex Free T4 6.22 uIU/mL (0.32-4.0); Vitamin D 25-OH Total 37.5 ng/mL (>30)
[2025-01-15 15:20] LABS: Free T4 (Free Thyroxine) 0.98 ng/dL (0.71-1.85)
== END 2025-01-15 13:11 | disposition home or self-care (01) ==
LOC: HO.LAB 13:10
PROVIDERS: PCP Physician Assistant; Visit Provider Physician Assistant
DX: M79.7 Fibromyalgia (principal); E78.00 Pure hypercholesterolemia, unspecified; R79.89 Other specified abnormal findings of blood chemistry; E66.9 Obesity, unspecified; R51.9 Headache, unspecified; E55.9 Vitamin D deficiency, unspecified
CPT/HCPCS: 36415; 80048; 80061; 82306; 83036; 84439; 84443; 85025

== ENCOUNTER 2025-03-26 14:25 | Outpatient (REF) | payer MEDICARE, MEDICAID, SELFPAY ==
[2025-03-26 15:18] LABS: Hemoglobin A1C 164.3107 umol/L; Total Hemoglobin (HGBA1C) 3216.0164 umol/L
[2025-03-26 17:35] LABS: Microalbum/Creatinine Ratio Ur 5.8 ug/mg cr (<30)
== END 2025-03-26 14:26 | disposition home or self-care (01) ==
LOC: HO.LAB 14:25
PROVIDERS: PCP Internal Medicine; Visit Provider Physician Assistant
DX: E11.9 Type 2 diabetes mellitus without complications (principal); E78.00 Pure hypercholesterolemia, unspecified; F32.A Depression, unspecified; R51.9 Headache, unspecified
CPT/HCPCS: 36415; 82043; 82570; 83036; 99212

== ENCOUNTER 2025-03-26 14:52 | Outpatient (AMB) | payer MEDICARE, MEDICAID, SELFPAY ==
--- NOTE | 2025-03-26 15:09 | MHC.PC.OV ---
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 MRI brain unremarkable. Stabbing sensation L>R. Initially was seeing black spots but went to eye doctor who changed rx and resolved. has not tried the nurtec prescribed. Fibro/arthralgias- follows with rheum. Overall controlled. Not exercising. Sx fluctuate with mood- on duloxetine, amitriptyline, flexeril, gabapentin Depression- follows with psychiatry. On rexulti, amitrityline, clonazepam, duloxetine. No SI/HI General: No fevers, malaise, unintentional weight loss HEENT: See HPI Cardiovascular: No chest pain, palpitations, or leg edema Respiratory: No shortness of breath, wheezing, cough MSK: See HPI Neuro: See HPI Psych: see hpi Skin: No rashes or lesions Exam: Constitutional - Awake and Alert, No apparent distress Eyes - PERRLA, EOMI Cardiovascular - S1S2, RRR, No edema Respiratory - Normal lung expansion, Normal respiratory effort, No respiratory distress, CTA bilaterally Extremities - no calf tenderness bilaterally, no swelling Skin - Warm/Dry Neurological - Alert & oriented x3, Psychological - Appropriate affect daily headaches- ?r/t headaches feels like stabbing pain L->R . blurred vision with headache, black dots. has been to eye doctor who changed prescription. has been to neurology but canceled due to missed appt [facility] Medical History (Updated 01/15/25 @ 16:49 by TRAM Restrepo) Type 2 diabetes mellitus Pelvic pain Acid reflux High cholesterol Vertigo Anxiety Surgical History History of tubal ligation History of section Family History (Updated 11/09/24 @ 15:00 by FERNY Smart) Mother No problems noted. Father Colon cancer Brother Colon cancer Family/Other History of breast cancer Social History Alcohol intake: never Patient Tobacco Use Status: Never used Tobacco Current occupational status: unemployed Physical exam (Primary Care) Vital Signs: Last Vital Signs Temp 97.1 F 03/26/25 15:14 Pulse 91 03/26/25 15:14 BP 132/86 03/26/25 15:14 Pulse Ox 95 03/26/25 15:14 Oxygen Delivery Method Room Air 03/26/25 15:14 BMI result Body Mass Index 39.9 Tobacco/Smoking Status: Tobacco use Status Patient Tobacco Use Status Never used Tobacco 03/26/25 15:16 Coding Level of Care Code Est Pt Level 4 (78681) Complex EM visit Add On G2211 Diagnoses Type 2 diabetes mellitus E11.9 High cholesterol E78.00 Depression F32.A Chronic daily headache R51.9 Assessment & Plan Assessment & Plan (1) Type 2 diabetes mellitus: Code(s): E11.9 - Type 2 diabetes mellitus without complications Category: Medical Plan: A1c ordered. Dm diet. Recommend exercises (2) High cholesterol: Code(s): E78.00 - Pure hypercholesterolemia, unspecified Category: Medical Plan: Lipid panel ordered. Thearpy to be recommended pending results (3) Depression: Code(s): F32.A - Depression, unspecified Category: Medical Plan: Overall stable. Continue therapies and follow up with psychitraist/therapist as scheduled (4) Chronic daily headache: Code(s): R51.9 - Headache, unspecified Category: Medical Plan: Reviewed MR brain. Trial nurtec. Referred to neuro Plan Follow up in 4 months. Labs to be completed prior to visit Orders: Orders Hemoglobin A1c 4 Months E11.9 - Type 2 diabetes mellitus without complications, E55.9 - Vitamin D deficiency, unspecified, E78.00 - Pure hypercholesterolemia, unspecified, R79.89 - Other specified abnormal findings of blood chemistry Lipid Panel 4 Months E55.9 - Vitamin D deficiency, unspecified, E78.00 - Pure hypercholesterolemia, unspecified Basic Metabolic Panel 4 Months E11.9 - Type 2 diabetes mellitus without complications, E55.9 - Vitamin D deficiency, unspecified, E78.00 - Pure hypercholesterolemia, unspecified, R79.89 - Other specified abnormal findings of blood chemistry Complete Blood Count Auto Diff 4 Months E11.9 - Type 2 diabetes mellitus without complications, E55.9 - Vitamin D deficiency, unspecified, E78.00 - Pure hypercholesterolemia, unspecified, R79.89 - Other specified abnormal findings of blood chemistry TSH reflex Free T4 4 Months E11.9 - Type 2 diabetes mellitus without complications, E55.9 - Vitamin D deficiency, unspecified, E78.00 - Pure hypercholesterolemia, unspecified, R79.89 - Other specified abnormal findings of blood chemistry Vitamin D 25-OH Total 4 Months E55.9 - Vitamin D deficiency, unspecified, E78.00 - Pure hypercholesterolemia, unspecified Referrals Diabetes Education Referral E11.9 - Type 2 diabetes mellitus without complications Neurology Referral H53.149 - Visual discomfort, unspecified, R51.9 - Headache, unspecified Medications: Refilled rimegepant (Nurtec ODT) 75 mg PO Q OTHER DAY 45 tabs 1RF
[2025-03-26 15:14] VITALS: BP 132/86; PULSE 91; TEMP 36.2; O2SAT 95; BMI 39.9
== END 2025-03-26 15:45 | disposition home or self-care (01) ==
LOC: HO.HMCHD 14:53
PROVIDERS: PCP Physician Assistant; Visit Provider Physician Assistant
DX: E11.9 Type 2 diabetes mellitus without complications (principal); E78.00 Pure hypercholesterolemia, unspecified; F32.A Depression, unspecified; R51.9 Headache, unspecified

== ENCOUNTER 2025-04-12 10:07 | Outpatient (AMB) | payer MEDICARE, MEDICAID, SELFPAY ==
--- NOTE | 2025-04-12 10:41 | A.OFFVIS_ITS ---
Vital Signs 04/12/25 10:46 Height 5 ft 1 in Weight 212 lb 15.465 oz BMI 40.2 BP 115/74 Blood Pressure Location Rt brachial Position Sitting Pulse 89 Pulse Source Pulse Oximeter Pulse Oximetry (%) 96 Oxygen Delivery Method Room Air Intake Visit Reasons: follow up Intake Note: Patient presents for Fibromyalgia follow up. Allergies No Known Allergies Allergy (Mild, Verified 04/12/25 10:45) NONE Medication List - Last Reconciled 04/12/25 by Yuliana Gonzalez MD amitriptyline 75 mg PO BEDTIME mtdbcqz-zmjcdckzvkste-acuooeaj 250-250-65 mg (Excedrin Migraine) 1 tab PO Q4-6H PRN brexpiprazole (Rexulti) mg PO DAILY cane As directed Use cane to assist with ambulation cholecalciferol (vitamin D3) (Vitamin D3) 50 mcg PO DAILY clonazepam 1 mg PO BID cyclobenzaprine 10 mg PO BEDTIME PRN duloxetine 60 mg PO DAILY gabapentin 400 mg PO TID hydroxyzine HCl 25 mg PO TID PRN meclizine 25 mg PO TID omeprazole 20 mg PO DAILY rimegepant (Nurtec ODT) 75 mg PO Q OTHER DAY simvastatin 10 mg PO DAILY walker As directed use walker to assist with ambulation HPI Comments Details: Patient is a 55-year-old female with hyperlipidemia, osteoarthritis of bilateral knees, depression and fibromyalgia who is here today for follow-up Interval History: Patient last seen 06/22/24 with ga - On duloxetine, gabapentin, amitriptyline and cyclobenzaprine - complained of severe left knee pain - receive steroid injection Today - On duloxetine, gabapentin, amitriptyline and cyclobenzaprine - Left knee improved after injection, no knee complaints today - Notes foot pain bilaterally on the dorsal aspect - Trying to walk more Rheumatologic History: Fibromyalgia Osteoarthritis bilateral knees Current Rheumatology Medication(s): Duloxetine 60 mg daily Gabapentin 400 mg 3 times a day Amitriptyline 75 mg at night Cyclobenzaprine 10 mg at night [facility] Medical History (Updated 01/15/25 @ 16:49 by TRAM Restrepo) Type 2 diabetes mellitus Pelvic pain Acid reflux High cholesterol Vertigo Anxiety Surgical History History of tubal ligation History of section Family History Mother No problems noted. 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 Well appearing and in no apparent painful distress MSK Hands * Right Hand: Able to make a fist. No swelling or tenderness to palpation of the MCPs, PIPs or DIPs. * Left Hand: Able to make a fist. No swelling or tenderness to palpation of the MCPs, PIPs or DIPs. * Herbedens nodes noted bilaterally Wrists * Right Wrist: Full ROM to flexion and extension. No swelling or TTP * Left Wrist: Full ROM to flexion and extension. No swelling or TTP Elbows * Right Elbow: Full ROM. No swelling or TTP. No TTP of the medial epicondyle. No TTP of the lateral epicondyle * Left Elbow: Full ROM. No swelling or TTP. No TTP of the medial epicondyle. No TTP of the lateral epicondyle Shoulders * Right shoulder: Full ROM. No swelling noted. No TTP of the AC joint. No TTP of the subacromial bursa. TTP of the posterior shoulder * Left shoulder: Full ROM. No swelling noted. No TTP of the AC joint. No TTP of the subacromial bursa. TTP of the posterior shoulder Hip bursa: Tenderness to palpation bilaterally Knees * Right knee: Full ROM. No swelling noted. No TTP of the knee joint line. TTP of pes anserine bursa * Left knee: Full ROM. No swelling noted. No TTP of the knee joint line. TTP of pes anserine bursa. Ankles * Right ankle: Good ankle dorsiflexion and plantar flexion. No swelling. No TTP of the ankle joint * Left ankle: Good ankle dorsiflexion and plantar flexion. No swelling. No TTP of the ankle joint Feet * Right foot: Negative squeeze test * Left foot: Negative squeeze test Tender points? * Tenderness to palpation of the bilateral trapezius, supraspinatus, anterior costochondral junctions, bilateral suboccipital muscle insertions SKIN No rashes Vital Signs: Last Vital Signs Pulse 89 04/12/25 10:46 BP 115/74 04/12/25 10:46 Pulse Ox 96 04/12/25 10:46 Oxygen Delivery Method Room Air 04/12/25 10:46 BMI result Body Mass Index 40.2 Results Reviewed Results Reviewed: Laboratory Tests 05/12/18 04/20/23 14:45 11:28 ESR 31 H Rheumatoid Factor < 15.0 Hip XR 03/2023 FINDINGS: Visualized portion of the proximal right femur demonstrate no fracture. Right femoral head is well-seated within the acetabulum. There is mild narrowing of the femoral acetabular joint space. Small osteophyte along the superolateral acetabular margin. Small enthesophytes off the greater trochanter of the right hip. The pelvic ring is intact. The left hip is grossly unremarkable. XR Bilateral Knees 10/2020 FINDINGS: Right: Bone alignment is normal. No fracture or dislocation is seen. There are small osteophytes at the medial femoral tibial and patellofemoral joints. There is a small osteophyte at the quadriceps tendon insertion to the patella. There is a small joint effusion. Left: Bone alignment is normal. No fracture or dislocation is seen. There are osteophytes at the medial femoral tibial and patellofemoral joints. There is no joint effusion. IMPRESSION: Mild degenerative changes. Assessment & Plan Assessment & Plan (1) Fibromyalgia: Code(s): M79.7 - Fibromyalgia Category: Medical Plan: #Fibromyalgia Patient is a 55 y.o. female with fibromyalgia here today for follow up. Currently on gabapentin, amitriptyline, cyclobenzaprine, and duloxetine. Encouraged stretching in addition to her walking Plan - Amitriptyline 75mg bedtime - Gabapentin 400mg TID - Cyclobenzaprine 10mg prn nightly - Duloxetine 60mg daily (from PCP) - RTC 1 year or sooner (2) Osteoarthritis of knees, bilateral: Comment: Mostly patellofemoral Code(s): M17.0 - Bilateral primary osteoarthritis of knee Category: Medical Qualifiers: Osteoarthritis type: primary Qualified Code(s): M17.0 - Bilateral primary osteoarthritis of knee Plan: #Bilateral primary knee osteoarthritis Knees stable today Plan I spent 20 minutes reviewing the record and labs, seeing the patient, discussing the treatment plan and documenting in the medical record ? Medications: Refilled amitriptyline 75 mg PO BEDTIME 90 tabs 4RF M79.7 - Fibromyalgia cyclobenzaprine 10 mg PO BEDTIME PRN 90 tabs 4RF muscle spasm M79.7 - Fibromyalgia gabapentin Take one pill in the morning, one pill in the afternoon and two pills at night 400 mg PO TID 270 caps 4RF M79.7 - Fibromyalgia Coding Level of Care Code Est Pt Level 3 (59786) Diagnoses Fibromyalgia M79.7 Primary osteoarthritis of both knees M17.0 Osteoarthritis type: primary
[2025-04-12 10:46] VITALS: BP 115/74; PULSE 89; O2SAT 96; BMI 40.2
== END 2025-04-12 11:16 | disposition home or self-care (01) ==
LOC: HO.RHES 10:08
PROVIDERS: PCP Physician Assistant; Visit Provider Student in an Organized Health Care Education/Training Program
DX: M79.7 Fibromyalgia (principal); M17.0 Bilateral primary osteoarthritis of knee
CPT/HCPCS: 99213

== ENCOUNTER → 2025-04-12 10:07 | Outpatient (BNVA) | payer MEDICARE, MEDICAID, SELFPAY | PROVIDERS: PCP Physician Assistant; Visit Provider Student in an Organized Health Care Education/Training Program | DX: M17.0 Bilateral primary osteoarthritis of knee (principal); M79.7 Fibromyalgia | CPT/HCPCS: 99212 ==

== ENCOUNTER 2025-05-28 12:58 | Outpatient (AMB) | payer MEDICARE, MEDICAID, SELFPAY ==
--- NOTE | 2025-05-28 13:50 | A.OFFVIS_ITS ---
Intake Intake Visit Reasons: T2DM Ux Ui Designer Required: No Accompanied by: Self / Same As Patient Allergies No Known Allergies Allergy (Mild, Verified 04/12/25 10:45) NONE HPI Comprehensive Diabetes Asmnt Most Recent Diabetes Results: Microalb/Creat Ratio, (<30) 5.8 ug/mg cr 03/26/25 Cholesterol, (<200) 186 mg/dL 01/15/25 HDL Cholesterol, (>40) 42 mg/dL 01/15/25 Triglycerides, (<150) 161 mg/dL H 01/15/25 Creatinine, (0.5-1.4) 0.82 mg/dL 01/15/25 BUN, (9-16) 13 mg/dL 01/15/25 Sodium, (135-145) 141 mmol/L 01/15/25 Potassium, (3.3-5.1) 4.0 mmol/L 01/15/25 Chloride, (96-108) 104 mmol/L 01/15/25 Carbon Dioxide, (22-29) 28 mmol/L 01/15/25 Calcium, (8.4-10.2) 9.8 mg/dL 01/15/25 AST, (5-31) 23 U/L 11/02/23 ALT, (0-31) 20 U/L 11/02/23 Total Protein, (6.5-8.0) 8.0 g/dL 11/02/23 Albumin, (3.5-5.0) 4.0 g/dL 11/02/23 [facility] Medical History (Updated 01/15/25 @ 16:49 by TRAM Restrepo) Type 2 diabetes mellitus Pelvic pain Acid reflux High cholesterol Vertigo Anxiety Surgical History History of tubal ligation History of section Family History Mother No problems noted. Father Colon cancer Brother Colon cancer Family/Other History of breast cancer Social History Alcohol intake: never Patient Tobacco Use Status: Never used Tobacco Current occupational status: unemployed Assessment & Plan Assessment & Plan (1) Type 2 diabetes mellitus: Code(s): E11.9 - Type 2 diabetes mellitus without complications Plan: Diabetes self-management education and support participation record Assessment/scale: 1= needs instructed? 2= needs review? 3= comprehend keep point? 4= demonstrates understanding/ competent? NC= Not Covered Topics Learning Objective: Initial visit Initial or post srvc Initial or post srvc Initial or post srvc Initial or post srvc Initial or post srvc Post srvc Comments Pre Edu-assessment/plan Outcome or reassess Outcome or reassess Outcome or reassess Outcome or reassess Outcome or reassess Outcome or reassess Diabetes pathophysiology 1 Healthy eating 1 Being active 1 Taking medication 1 Monitoring glucose 1 Acute complication 1 Chronic complicated 1 Lifestyle and healthy coping 1 Diabetes distress in support 1 ?Diabetes pathophysiology: ?Defined diabetes med identify own type of diabetes; list 3 options for treating diabetes Healthy eating: ?Described effect of type, amount and ?timing of food on blood glucose; list 3 methods for planning meal Being active: ?State effect of exercise on blood glucose level Taking medication: ?State effect of diabetes medications on diabetes; name diabetes medications taking, action and side effects Monitoring glucose: ?Identify recommended blood glucose targets and personal target Acute complication: ?List symptoms and treatment of hyper and hypoglycemia, DKA, sick day guidelines and guidelines for severe weather or situations of crisis and diabetes supply manage Chronic complication: ?To find the relationship of blood glucose levels to long- term complications of diabetes in screening and preventative measures Lifestyle and healthy coping: ?Described lifestyle and healthy coping strategies to rule out diabetes self-management Diabetes to stress and support: ?Recognize Diabetes to stress and be able to mechelle ntified support options Learning objectives: The patient was provided with verbal and written education on the following topics as outlined below. The patient met all learning objectives and was able to verbalize understanding and provide teach back of education topics discussed . The patient was provided with the opportunity to ask questions and all questions were answered. Patient Assessment Assess patient education level/literacy/barriers, patient diagnosed with diabetes in March 2025 with A1c of 6.8% Patient is currently on lifestyle modifications only Patient questions/concerns, patient stated at visit today that she is afraid of needles and is concerned that she will have to take injectable medications. Encourage patient to discuss with provider managing diabetes her concerns What is Diabetes? Pathophysiology How the body produces and uses insulin Identify type of DM Risk factors Signs of Diabetes Brief overview of Diabetes Management Monitoring blood sugar Following a meal plan Regular exercise Maintaining a healthy weight Taking medication as needed Members of the care team (PCP, RN, MA, RD, CDE, candy forming machine operator) Blood glucose monitoring When/how often to test Target blood sugar ranges Patient does not currently test glucose Introduction to Nutrition Importance of healthy diet in managing DM Diet is personalized to individual preference Review patient?s regular diet/food preferences Who prepares meals/does food shopping/ Dining out?/ Barriers? How diet effects glucose Eating 3 balanced meals a day with small, healthy snacks between meals Review food groups Carbohydrates: What is a carbohydrate/Which food/food groups are considered carbohydrates Effect of carbohydrates on blood glucose Portion sizes Reading food labels Basic carb counting (if applicable per nursing assessment) Plate method Meal planning Recommendations: Follow plate method, consistent carbs and read nutritional labels. Smart Goal: Patient will identify foods in current meal plan that contain carbohydrates Educational Materials: The patient was provided with the following written educational materials: Planning Healthy Meals Handout Patient Response to instructions: Comprehension of Instructions: Fair Readiness to make changes: Contemplation How confident they feel about making changes: Fair Portions of this note were created using voice recognition software, please excuse any words or phrases that may have been misinterpreted. Patient Instructions: Include regular daily activity. ADA recommends 30 minutes of exercise 5 days a week. Weight loss talk to PCP or Director Operating Room before starting new plan. Test blood sugar as directed; Fasting and 2hpp largest meal. Watch trends in results. Utilize results and to assess how food, physical activity and medications affect blood sugar results. Bring glucometer or CGM to next visit. Be knowledgeable about diabetes medication, its action, side effects, efficacy, toxicity, prescribed dosage, appropriate timing and frequency of administration, effect of missed and delayed doses and instructions for storage, travel and safety. Problem solving techniques to monitor hypo/hyperglycemia episodes and treatments. Reduce risk reduction behaviors, smoking cessation, regular eye, foot and dental examinations. Coding Level of Care Code Est Pt Level 1 (38961) Diagnoses Type 2 diabetes mellitus E11.9
== END 2025-05-28 13:51 | disposition home or self-care (01) ==
LOC: HO.ENCR 12:59
PROVIDERS: PCP Physician Assistant; Visit Provider Registered Nurse Diabetes Educator
DX: E11.9 Type 2 diabetes mellitus without complications (principal)

== ENCOUNTER → 2025-05-28 12:58 | Outpatient (BNVA) | payer MEDICARE, MEDICAID, SELFPAY | PROVIDERS: PCP Physician Assistant; Visit Provider Registered Nurse Diabetes Educator | DX: E11.9 Type 2 diabetes mellitus without complications (principal) | CPT/HCPCS: 99211 ==

== ENCOUNTER 2025-07-09 12:32 | Outpatient (REF) | payer MEDICARE, MEDICAID, SELFPAY ==
--- OUTSIDE RECORDS SUMMARY | 2025-06-29 07:30 | XMS_ITS | Continuity of Care Document ---
Author Organization [facility] Address [address] [place] [address] [address] [place] [address] Phone Care Team Providers Care Senior Mobile Web Developer Name Role Phone Chilo HOLLOWAY, TRAY, GRAHAM, Han Unavailable U navailable Procedures Procedure Date Duplex Scan-extrem Veins; Uni/ CT & MA N Gradient compression wrap with adjustabl e straps LT Gradient compression wrap with adjustabl e straps RT Inj Scleros Solut; Mx Veins 1- CT & MA N Ultrason Guidan Needle Bx-rad- CT & MA N Office/Oupt E&M New Pt 30 Mins- CT & MA Duplex Scan-extrem Veins; Comp- CT & MA Advance Directives Directive Yes / No Effective Date File Name No Information Encounters Encounter Description Practice Location Reason(s) For Visit Diagnoses Date Provider Providers Copied on Encounter [facility], [address] [place] [address] [address], [place], [id number], [place] tel:[phone] [facility] [place] Encounter for follow-up examination after completed treatment for conditions other than malignant neoplasmPain in right lower leg 5 Chilo HOLLOWAY, TRAY, GRAHAM Short. [address] [facility], [address], [facility] [place], [id number] , [place]. tel:[phone] Referring Provider: Ani Estrada, [address], [address], [place], [place], [address]. tel:[phone] [facility] MD [place], [address] [place] [address] [address], [id number], [place] tel:[phone] [facility] [place] Lymphedema, not elsewhere classified 5 Chilo HOLLOWAY RVT, GRAHAM Short. [address] [facility], [address], [place], [id number] , [place]. tel:[phone] Referring Provider: Ani Estrada, [address], [address], [place], [place], [address]. tel:[phone] [facility] MD ROSARIO, [address] [place] [address] [address], [id number], [place] tel:[phone] [facility] [place] Varicose veins of right lower extremity with other complications 5 Yoni Calvillo . [address] [facility], [address], [place], [id number] , [place]. tel:[phone] Referring Provider: Ani Estrada, [address] [place] [address], [address], [place], [place], [address]. tel:[phone] Office/Oupt E&M New Pt 30 Mins- CT & [place] [facility] MD ROSARIO, [address] [place] [address] [address], [id number], [place] tel:[phone] [facility] [place] Pain in right lower legPain in left lower legPain in right legLymphedema, not elsewhere classifiedRestl ess legs syndromeVenous insufficiency (chronic) (peripheral)Pru ritus, unspecifiedCram p and spasmLocalized edema 5 Chilo HOLLOWAY RVT, GRAHAM Short. [address] [facility], [address], [place], [id number] , [place]. tel:[phone] [facility] MD ROSARIO, [address] [place] [address] Dr [address], [place], [id number], [place] tel:[phone] [facility] [place] Varicose veins of bilateral lower extremities with pain Chilo HOLLOWAY, TRAY, GRAHAM Short. [address] [facility], [address], [place], [id number] , [place]. tel:[phone] Referring Provider: Han Woo MD, TRAY, GRAHAM, [address] [facility] [address], [place], [address] . tel:[phone] Family History Family Member Type Diagnosis Age At Onset No Information Payers Payer name Insurance type Covered republican ID Authoriza tion(s) Medicare TRES TONY [id number] Medical Assistance TRES CASTREJON [id number] Social History Type Description Quantity Date Captured Comments Sex Female Smoking Status No Information Chief Complaint And Reason For Visit No Information Reason For Referral Reason For Referral No Information Plan Of Treatment Date Type Action Status Goal Diet education completed Referral Ordered: Weight management: Referral to physician timeframe: 3 Months (related to Body mass index (BMI) 39.0-39.9, adult) ordered Appointment Rosmery Bazan BOOKED Appointment Rosmery Bazan BOOKED Appointment Rosmery Bazan BOOKED Appointment Rosmery Bazan BOOKED History Of Present Illness Encounter Date Complaint History Of Prese nt Illness No Information Functional Status Date Functional Assessmen t No Information Instructions Date Instruction Additional Infor mation Patient education booklet given Related to Pain in right lower leg Lifestyle education Related to B linda mass index (BMI) 39.0-39.9, adult Giving Encouragement to exercise Related to Body mass index (BMI) 39.0-39.9, adult Diet education Related to Body mass index (BMI) 39.0-39.9, adult Assessments Type Assessment Date No Information Patient Care Teams Name Effective Dates (start - stop) Status Members No Information
[2025-07-09 13:04] LABS: MANUAL DIFF FLAG NO
[2025-07-09 13:51] LABS: Hematocrit 37.5 % (37.0-47.0); Hemoglobin 12.2 g/dl (12.0-16.0); Imm Gran Abs Auto 0.03 X10*3/uL (0.00-0.03); Imm Gran Pct Auto 0.3 % (0.0-0.4); Lymphocytes Absolute Auto 3.6 X10*3/uL (1.2-4.9); Mean Corpuscular HGB Conc 32.5 g/dl (31.0-35.0); Mean Corpuscular Hemoglobin 28.8 pg (27.0-33.0); Mean Corpuscular Volume 88.4 fL (80.0-98.0); NRBC Abs Auto 0.000 X10*3/uL (0.0-0.012); NRBC Pct Auto 0.0 /100WBC (0.0-0.2); Platelet Count 373 X10*3/uL (160-400); Red Blood Count 4.24 X10*6/uL (4.20-5.50); White Blood Count 8.7 X10*3/uL (4.8-10.8)
[2025-07-09 14:31] LABS: Anion Gap 12 (12-20); Blood Urea Nitrogen 9 mg/dL (9-16); Calcium 9.1 mg/dL (8.4-10.2); Carbon Dioxide 28 mmol/L (22-29); Chloride 105 mmol/L (96-108); Cholesterol 160 mg/dL (<200); Estimated Glomerular Filt Rate > 60; HDL Cholesterol 35 mg/dL (>40); Potassium 3.7 mmol/L (3.3-5.1); Sodium 141 mmol/L (135-145); Triglycerides 120 mg/dL (<150)
[2025-07-09 15:27] LABS: Free T4 (Free Thyroxine) 0.96 ng/dL (0.71-1.85)
== END 2025-07-09 12:33 | disposition home or self-care (01) ==
LOC: HO.LAB 12:32
PROVIDERS: PCP Physician Assistant; Visit Provider Physician Assistant
DX: E11.9 Type 2 diabetes mellitus without complications (principal); R79.89 Other specified abnormal findings of blood chemistry; E78.00 Pure hypercholesterolemia, unspecified; E55.9 Vitamin D deficiency, unspecified
CPT/HCPCS: 36415; 80048; 80061; 82306; 83036; 84439; 84443; 85025

== ENCOUNTER 2025-07-17 11:09 | Outpatient (AMB) | payer MEDICARE, MEDICAID, SELFPAY ==
--- NOTE | 2025-07-17 11:12 | A.OFFVIS_ITS ---
Vital Signs 07/17/25 11:18 Height 5 ft 1 in Weight 207 lb BMI 39.1 BP 114/58 L Blood Pressure Location Rt brachial Position Sitting Pulse 88 Pulse Source Pulse Oximeter Pulse Oximetry (%) 95 Oxygen Delivery Method Room Air Intake Visit Reasons: colo screening Intake Note: New pt for initial colo consult. CC; Pt denies any current GI sx or concerns. Reports hx of GERD but states that it is still well managed with current PPI. Reports FMHx of CRC (Brother). 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 female with past medical history of GERD, diabetes not on any treatment yet, vertigo, obesity, hypercholesteremia osteoarthritis, depression, fibromyalgia is here today for pre colonoscopy screening.? Patient was sent to us by her PCP.? This is her first colonoscopy screening.? Patient denies any gastrointestinal symptoms in the past or at present.? Patient reports family history of CRC. Patient's brother diagnosed with colon cancer in his 40s, currently going for chemo. Patient already has a colonoscopy scheduled for September 12. Reports to have trouble moving her bowels. Currently not taking any laxatives. Patient has been taking omeprazole for over a decade for reflux. Currently reports that is fairly controlled. Denies history of difficulty with sedation or anesthesia in the past.? Negative for history of sleep apnea.? Denies any history of cardiac, renal, pulmonary, or hepatic disease.?? No history of infectious? diseases like hepatitis A, B, C, HIV or tuberculosis.? Patient is not on any anticoagulation [facility] Medical History (Updated 07/17/25 @ 11:26 by Sophie Gaspar, [facility]) Type 2 diabetes mellitus Pelvic pain Acid reflux High cholesterol Vertigo Anxiety Surgical History History of tubal ligation History of section Family History Mother No problems noted. Father Lung cancer Brother Colon cancer Family/Other History of breast cancer Social History Alcohol intake: never Patient Tobacco Use Status: Never used Tobacco Current occupational status: unemployed Physical Exam Vital Signs: Last Vital Signs Pulse 88 07/17/25 11:18 BP 114/58 L 07/17/25 11:18 Pulse Ox 95 07/17/25 11:18 Oxygen Delivery Method Room Air 07/17/25 11:18 BMI result Body Mass Index 39.1 Assessment & Plan Assessment & Plan (1) Screen for colon cancer: Code(s): Z12.11 - Encounter for screening for malignant neoplasm of colon (2) Acid reflux: Code(s): K21.9 - Gastro-esophageal reflux disease without esophagitis Category: Medical Qualifiers: Esophagitis presence: esophagitis presence not specified Qualified Code(s): K21.9 - Gastro-esophageal reflux disease without esophagitis (3) Constipation: Code(s): K59.00 - Constipation, unspecified Qualifiers: Constipation type: slow transit constipation Qualified Code(s): K59.01 - Slow transit constipation Plan Patient denies any cardiac or respiratory symptoms.? Patient has been on PPI for over 10 years, she is a diabetic. We will send her for upper endoscopy. Patient reports constipation bowel movements every 3-4 days, will start patient on Dulcolax. Patient was encouraged to take here daily. Increase fluid intake and activity to promote better bowel motility. Patient will return in 2 months for re-evaluation. Patient is agreeable to this plan and verbalizes understanding of instructions. She was given the opportunity to ask questions and all questions answered Orders: Referrals GI Procedure Notification K21.9 - Gastro-esophageal reflux disease without esophagitis, Z12.11 - Encounter for screening for malignant neoplasm of colon Medications: New bisacodyl (Dulcolax (bisacodyl)) 10 mg (2 x 5 mg) PO BEDTIME 180 tabs 4RF polyethylene glycol 3350 (Miralax) As directed by gastroenterology department at [facility] 238 grams PO ONCE 238 grams 0RF Z12.11 - Encounter for screening for malignant neoplasm of colon Coding Level of Care Code New Pt Level 4 (19530) Diagnoses Screen for colon cancer Z12.11 Gastroesophageal reflux disease, unspecified whether esophagitis present K21.9 Esophagitis presence: esophagitis presence not specified Slow transit constipation K59.01 Constipation type: slow transit constipation Time Spent (min) 50 Comment 35 minutes spent with patient and additional 15 minutes spent reviewing her records
[2025-07-17 11:18] VITALS: BP 114/58; PULSE 88; O2SAT 95; BMI 39.1
== END 2025-07-17 11:36 | disposition home or self-care (01) ==
LOC: HO.HGI 11:10
PROVIDERS: PCP Physician Assistant; Visit Provider Nurse Practitioner Family
DX: Z01.818 Encounter for other preprocedural examination (principal); Z12.11 Encounter for screening for malignant neoplasm of colon; Z80.0 Family history of malignant neoplasm of digestive organs; K21.9 Gastro-esophageal reflux disease without esophagitis; K59.01 Slow transit constipation
CPT/HCPCS: 99204

== ENCOUNTER → 2025-07-17 11:09 | Outpatient (BNVA) | payer MEDICARE, MEDICAID, SELFPAY | PROVIDERS: PCP Physician Assistant; Visit Provider Nurse Practitioner Family | DX: Z01.818 Encounter for other preprocedural examination (principal); Z12.11 Encounter for screening for malignant neoplasm of colon; K21.9 Gastro-esophageal reflux disease without esophagitis; K59.01 Slow transit constipation | CPT/HCPCS: 99202 ==